=== PATIENT | female | born 1990 | race Caucasian/White ===

== ENCOUNTER 2023-08-07 09:50 | Outpatient (AMB) | payer OTHER, SELFPAY ==
[2023-08-07 09:56] VITALS: BP 118/78; PULSE 78; O2SAT 99; BMI 27.2
--- NOTE | 2023-08-07 09:56 | MHC.PC.OV ---
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 -Pt states she does not have a therapist or taking any meds. She notes thoughts of hurting herself do happen but would never actually do it. PMHx: Acne SurgHx: Csection FHx: Mom: DM, HTN, HLD, CAD, Lung CA, Breast CA. Dad: Melanoma SocHx: Nonsmoker, EtOH 1-2 x a month 1-2 drSanta No drugs HPI Comments History of Present Illness Details Documentation assistance for Raj James MD, was provided by Edmond Jasmine, Opener Verifier [employer] on 08/07/2023 10:44 AM ESTSanta I, Dr. James, have read, observed, and verified documentation. PFSH Medical History (Updated 08/07/23 @ 10:45 by Edmond Jasmine) delivery delivered Surgical History (Updated 08/07/23 @ 10:05 by Manda Lopez [facility]) No pertinent past surgical history Family History (Updated 08/07/23 @ 10:08 by Manda Lopez CMA) Mother High blood pressure Breast cancer Lung cancer High cholesterol Diabetes Cardiovascular disease Father Melanoma Social History (Updated 04/18/24 @ 10:12 by [facility] Household Members: Family Both parents involved: No Caregiver staying overnight: No Housing: House Are you a primary residential care officer to a significant other at home: No Do you presently have visiting nurse or other home services: No 75 years or older and lives alone: No Alcohol intake: current Comment: on occasion, socially Patient Tobacco Use Status: Never used Tobacco e-Cigarette/Vaping Use: Never Used service: No Current occupational status: unemployed Cognitive needs: No Hearing needs: No Vision needs: No Female Reproductive History Menstrual Date of last menstrual period: 07/25/23 Questionnaire PHQ-9 Over the last 2 weeks, how often have you been bothered by any of the following problems? 1. Little interest or pleasure in doing things: several days 2. Feeling down, depressed, or hopeless: several days 3. Trouble falling or staying asleep, or sleeping too much: several days 4. Feeling tired or having little energy: several days 5. Poor appetite or overeating: several days 6. Feeling bad about yourself - or that you are a failure or have let yourself or your family down: several days 7. Trouble concentrating on things, such as reading the newspaper or watching television: several days 8. Moving or speaking so slowly that other people could have noticed. Or the opposite - being so fidgety or restless that you have been moving around a lot more than usual: not at all 9. Thoughts that you would be better off or of hurting yourself in some way: several days Total score: 8 Depression Screening Interpretation: Positive Depression Screening Done: Yes 27645 - PHQ-9 Billing: Yes Source: Developed by Drs. Rusty Morales, Denise Valladares, Jose Hoover and colleagues, with an educational randy from [employer]. Thrive Questionnaire Date Thrive assessed: 08/07/23 I am a: Patient What is your living situation today?: I have a steady place to live Within the past 12 months, did the food you bought not last and you didn't have the money to get more?: Never true Within the past 12 months, did you worry whether your food would run out before you got money to buy more?: Never true Do you have trouble paying for medicines?: No Do you have trouble getting transportation to medical appointments?: No Do you have trouble paying your heating and electricity bill?: No Do you have trouble taking care of your child, family member or friend?: No Do you have trouble with day-to-day activities such as bathing, preparing meals, shopping, managing finances, etc.?: No Are you currently unemployed and looking for a job?: No Are you interested in more education?: No THRIVE Score: 0 AUDIT C Alcohol Use Questionnaire (AUDIT-C) 1. How often do you have a drink containing alcohol?: 2-4 times a month 2. How many drinks containing alcohol do you have on a typical day when you are drinking?: 1 or 2 3. How often do you have six or more drinks on one occasion?: Never Total Score: 2 FAZAL-7 AMB Questionnaire FAZAL-7 Date FAZAL - 7 assessed: 08/07/23 Feeling nervous, anxious, or on edge: 2 = More than half the days Not being able to stop or control worryin = More than half the days Worrying too much about different things: 2 = More than half the days Trouble relaxin = More than half the days Being so restless that it is hard to sit still: 1 = Several days Becoming easily annoyed or irritable: 3 = Nearly every day Feeling afraid as if something awful might happen: 2 = More than half the days Total FAZAL-7 score (0-4 normal; 5-9 mild; 10-14 moderate; 15-21 severe): 14 Source: Developed by Drs. Rusty Morales, Denise Valladares, Jose Hoover and colleagues, with an educational randy from [employer]. FAZAL-7 Assessment Billing FAZAL-7 Assessment Tool: FAZAL-7 Assessment 87146 Review of Systems Const Denies chills, Denies fatigue, Denies fever(s), Denies headache(s) and Denies weakness ENT Denies dizziness and Denies headache(s) Card Denies chest pain, Denies lightheadedness, Denies dyspnea and Denies other (Palpitations) Resp Denies cough, Denies dyspnea, Denies wheezing and Denies other ( shortness of breath) Musc Denies numbness and Denies tingling Neuro Denies dizziness, Denies headache(s), Denies numbness, Denies tingling, Denies paresthesias and Denies weakness Psych Reports anxiety and Reports depression Endo Denies fatigue Aller/Immun Denies wheezing Physical exam (Primary Care) Vital Signs: Last Vital Signs Pulse 78 08/07/23 09:56 BP 118/78 08/07/23 09:56 Pulse Ox 99 08/07/23 09:56 Oxygen Delivery Method Room Air 08/07/23 09:56 BMI result Body Mass Index 27.2 Tobacco/Smoking Status: Tobacco use Status Tobacco use date assessed 08/07/23 08/07/23 10:17 Patient Tobacco Use Status Never used Tobacco 08/07/23 10:17 e-Cigarette/Vaping Use Never Used 08/07/23 10:17 PHQ-9: PHQ-9 Score PHQ-9: Total score 8 08/07/23 10:17 Depression Screening Interpretation: Positive Thrive Assessment: Date of Thrive Assessment Date Thrive assessed 08/07/23 08/07/23 10:17 Const General: no acute distress and well developed Nutritional Appearance: well nourished Orientation/consciousness: patient oriented x3 HENMT Head: Yes normocephalic and Yes atraumatic Eyes General: appearance normal, both eyes and all related structures Pupils: Equal, round and reactive pupils present EOM: EOMs intact bilaterally Resp Effort & Inspection: normal respiratory effort Auscultation: clear to auscultation bilaterally Cardio Rate: regular rate Rhythm: regular rhythm Heart sounds: S1 normal heart sound present, S2 normal heart sound present, no gallops, no murmurs and no rubs Neuro General: patient oriented x3 and gait normal Cranial nerves: Yes Equal, round and reactive pupils present Psych Affect: normal affect Assessment and Plan Assessment & Plan (1) Anxiety with depression: Code(s): F41.8 - Other specified anxiety disorders Plan: Patient?denies?any?intention?to?harm?herself. We?had?a?long?discussion?about?1st?and?2nd?line?medications?for?anxiety?and?depression. Will?start?citalopram. Will?ask?the?nurse?navigator?to?help?connect?her?with?a?therapist Will?follow-up?in?a?month (2) Neoplasm of uncertain behavior of skin: Code(s): D48.5 - Neoplasm of uncertain behavior of skin Plan: Will?refer?to?dermatology?for?small?0.5?cm lesion?on?the?left?side?of?her?nose She?is?also?concerned?about?acne?and?can?discuss?this?with?them?as?well (3) Acne: Code(s): L70.9 - Acne, unspecified Plan: As?above,?referred?to?Dermatology (4) Screening for cervical cancer: Code(s): Z12.4 - Encounter for screening for malignant neoplasm of cervix Plan: Patient?would?like?a?referral?to?OBGYN?for?screening?for?cervical?cancer?and?java security engineer?care Referred (5) Laboratory exam ordered as part of routine general medical examination: Code(s): Z00.00 - Encounter for general adult medical examination without abnormal findings Plan: Check?lab Orders: Orders Comprehensive [place]. Panel Fast Today Z00.00 - Encounter for general adult medical examination without abnormal findings Lipid Panel Today Z00.00 - Encounter for general adult medical examination without abnormal findings UA and rflx microscopic Today Z00.00 - Encounter for general adult medical examination without abnormal findings Syphilis Screen Today Z11.3 - Encounter for screening for infections with a predominantly sexual mode of transmission Microalbumin, Random (w Creat) Today I10 - Essential (primary) hypertension TSH reflex Free T4 Today Z00.00 - Encounter for general adult medical examination without abnormal findings HIV Ab/Ag Today Z11.3 - Encounter for screening for infections with a predominantly sexual mode of transmission Hepatitis B,C Profile Today Z11.3 - Encounter for screening for infections with a predominantly sexual mode of transmission Referrals Dermatology Referral D48.5 - Neoplasm of uncertain behavior of skin, L70.9 - Acne, unspecified ENVIRONMENTAL ANALYST Referral Z12.4 - Encounter for screening for malignant neoplasm of cervix Nurse Navigator Referral F41.8 - Other specified anxiety disorders Medications: New citalopram 10 mg PO DAILY 30 days 30 tabs 1RF F41.8 - Other specified anxiety disorders Coding Level of Care Code New Pt Level 3 (67214) Diagnoses Anxiety with depression F41.8 Neoplasm of uncertain behavior of skin D48.5 Acne L70.9 Screening for cervical cancer Z12.4 Laboratory exam ordered as part of routine general medical examination Z00.00 Additional Codes FAZAL-7 Assessment Billing - FAZAL-7 Assessment Tool: FAZAL-7 Assessment 70684 ([id number])
== END 2023-08-07 11:37 | disposition home or self-care (01) ==
PROVIDERS: PCP Family Medicine; Visit Provider Family Medicine
DX: F41.8 Other specified anxiety disorders (principal); D48.5 Neoplasm of uncertain behavior of skin; L70.9 Acne, unspecified
CPT/HCPCS: 96127; 99203

== ENCOUNTER 2023-08-18 07:01 | Outpatient (REF) | payer OTHER, SELFPAY ==
[2023-08-18 12:15] LABS: Appearance Urine Clear; Color Urine Yellow; Glucose Urine UA Negative (Negative); Leukocyte Esterase Urine Trace (Negative); Nitrite Urine Negative (Negative); UMIC TRIGGER UA YES; Urine Blood Negative (Negative); Urine Ketones Negative (Negative); Urine Protein Negative (Neg-Trace)
[2023-08-18 12:23] LABS: Bacteria Urine Trace (None Seen); Hyaline Casts Urine 0-2 /LPF (0-2); RBC Urine 0-2 /HPF (0-2); WBC Urine 0-5 /HPF (0-5)
[2023-08-18 12:54] LABS: Creatinine Urine 101.23 mg/dL; Microalbumin Urine < 5.0 mg/L
[2023-08-18 13:06] LABS: Alanine Aminotransferase 12 U/L (0-31); Albumin Level 4.3 g/dL (3.5-5.0); Alkaline Phosphatase 36 U/L (39-117); Anion Gap 10 (12-20); Aspartate Amino Transferase 16 U/L (5-31); Bilirubin Total 0.7 mg/dL (0.0-1.0); Blood Urea Nitrogen 15 mg/dL (9-16); Calcium 9.1 mg/dL (8.4-10.2); Carbon Dioxide 26 mmol/L (22-29); Chloride 106 mmol/L (96-108); Cholesterol 154 mg/dL (<200); Estimated Glomerular Filt Rate > 60; Glucose Fasting 86 mg/dL (60-99); HDL Cholesterol 50 mg/dL (>40); LDL Cholesterol Calculated 95 mg/dL (<100); Potassium 4.1 mmol/L (3.3-5.1); Sodium 138 mmol/L (135-145); Triglycerides 45 mg/dL (<150)
[2023-08-18 13:27] LABS: TSH reflex Free T4 1.93 uIU/mL (0.32-4.0)
[2023-08-18 13:29] LABS: HBS Num1 10.36 mIU/mL (0-7.99); HBc Num1 0.16 S/CO (0.00-0.79); HIV AB/AG Nonreactive (Nonreactive); HIV Num 1 0.08 S/CO (0.00-0.99); Hepatitis B Core Antibody Nonreactive (Nonreactive)
[2023-08-18 13:30] LABS: Syphilis Screen Nonreactive (Nonreactive)
[2023-08-18 13:34] LABS: HBsAGNum1 0.43 S/CO (0.00-0.99); Hepatitis B Surface Antigen Negative (Negative); ~HepC Num1 0.18 S/CO (0.00-0.79); ~Hepatitis C Antibody Nonreactive (Nonreactive)
[2023-08-18 13:44] LABS: ~Hepatitis B Surface Antibody GRAYZONE (Nonreactive)
[2023-08-18 14:47] LABS: HBS Num2 11.23 mIU/mL (0-7.99); HBS Num3 11.22 mIU/mL (0-7.99)
== END 2023-08-18 07:02 | disposition home or self-care (01) ==
LOC: HO.WFDLDS 07:01
PROVIDERS: Visit Provider Family Medicine
DX: Z00.00 Encounter for general adult medical examination without abnormal findings (principal); Z11.3 Encounter for screening for infections with a predominantly sexual mode of transmission; Z11.4 Encounter for screening for human immunodeficiency virus [HIV]; I10 Essential (primary) hypertension
CPT/HCPCS: 36415; 80053; 80061; 81001; 81003; 82043; 82570; 84443; 86704; 86706; 86780; 86803; 87340; 87389

== ENCOUNTER → 2023-09-11 11:46 | Outpatient (AMB) | payer OTHER, SELFPAY ==
--- NOTE | 2023-09-11 11:51 | MHC.PC.OV ---
Vital Signs 09/11/23 11:54 Height 5 ft 4 in Weight 153 lb 2 oz BMI 26.3 BP 114/68 Blood Pressure Location Lt brachial Position Sitting Pulse 72 Pulse Source Pulse Oximeter Pulse Oximetry (%) 68 L Oxygen Delivery Method Room Air Intake Visit Reasons: Follow-up?anxiety?and?depression Intake Note: Patient is here to follow up on anxiety and depression today. Allergies No Known Allergies Allergy (Verified 09/11/23 11:55) Tobacco use date assessed: 09/11/23 Dental Screening Dental Screen Date: 08/07/23 HPI Follow-up?anxiety?and?depression HPI Details 32 y/o female presents to f/u anxiety/depression. Pt notes citalopram 10mg seems to help. She continues to f/u with her therapist. PHQ-9 8, FAZAL-7 7 today. Labs were drawn 08/18/23. Reviewed labs with pt. Labs were fine. HPI Comments History of Present Illness Details Documentation assistance for Raj James MD, was provided by Edmond Jasmine, [employer] on 09/11/2023 12:09 PM EST. I, Dr. James, have read, observed, and verified documentation. [facility] Medical History delivery delivered Surgical History No pertinent past surgical history Family History (Updated 09/11/23 @ 12:00 by Manda Lopez CMA) Mother High blood pressure Breast cancer Lung cancer High cholesterol Diabetes Cardiovascular disease Substance abuse in family Father Melanoma Maternal Aunt Substance abuse in family Social History Household Members: Family Both parents involved: No Caregiver staying overnight: No Housing: House Are you a primary child care teacher to a significant other at home: No Do you presently have visiting nurse or other home services: No 75 years or older and lives alone: No Alcohol intake: current Comment: on occasion, socially Patient Tobacco Use Status: Never used Tobacco e-Cigarette/Vaping Use: Never Used service: No Current occupational status: unemployed Cognitive needs: No Hearing needs: No Vision needs: No Questionnaire PHQ-9 Over the last 2 weeks, how often have you been bothered by any of the following problems? 1. Little interest or pleasure in doing things: several days 2. Feeling down, depressed, or hopeless: several days 3. Trouble falling or staying asleep, or sleeping too much: several days 4. Feeling tired or having little energy: several days 5. Poor appetite or overeating: several days 6. Feeling bad about yourself - or that you are a failure or have let yourself or your family down: several days 7. Trouble concentrating on things, such as reading the newspaper or watching television: several days 8. Moving or speaking so slowly that other people could have noticed. Or the opposite - being so fidgety or restless that you have been moving around a lot more than usual: several days 9. Thoughts that you would be better off or of hurting yourself in some way: not at all Total score: 8 Depression Screening Interpretation: Positive Depression Screening Done: Yes Source: Developed by Drs. Rusty Morales, Denise Valladares, Jose Hoover and colleagues, with an educational randy from [employer]. Thrive Questionnaire Date Thrive assessed: 08/07/23 FAZAL-7 AMB Questionnaire FAZAL-7 Date FAZAL - 7 assessed: 09/11/23 Feeling nervous, anxious, or on edge: 1 = Several days Not being able to stop or control worryin = Several days Worrying too much about different things: 1 = Several days Trouble relaxin = Several days Being so restless that it is hard to sit still: 1 = Several days Becoming easily annoyed or irritable: 1 = Several days Feeling afraid as if something awful might happen: 1 = Several days Total FAZAL-7 score (0-4 normal; 5-9 mild; 10-14 moderate; 15-21 severe): 7 Source: Developed by Drs. Rusty Morales, Denise Valladares, Jose Hoover and colleagues, with an educational randy from [employer]. Review of Systems Const Denies chills, Denies fatigue, Denies fever(s), Denies headache(s) and Denies weakness ENT Denies dizziness and Denies headache(s) Card Denies dyspnea Resp Denies cough, Denies dyspnea, Denies wheezing and Denies other (shortness of breath) Musc Denies numbness and Denies tingling Neuro Denies dizziness, Denies headache(s), Denies numbness, Denies tingling and Denies weakness Psych Reports anxiety and Reports depression Endo Denies fatigue Aller/Immun Denies wheezing Physical exam (Primary Care) Vital Signs: Last Vital Signs Pulse 72 09/11/23 11:54 BP 114/68 09/11/23 11:54 Pulse Ox 68 L 09/11/23 11:54 Oxygen Delivery Method Room Air 09/11/23 11:54 BMI result Body Mass Index 26.3 Tobacco/Smoking Status: Tobacco use Status Tobacco use date assessed 09/11/23 09/11/23 12:06 Patient Tobacco Use Status Never used Tobacco 09/11/23 11:52 e-Cigarette/Vaping Use Never Used 09/11/23 11:52 PHQ-9: PHQ-9 Score PHQ-9: Total score 8 09/11/23 12:08 Depression Screening Interpretation: Positive Thrive Assessment: Date of Thrive Assessment Date Thrive assessed 08/07/23 09/11/23 11:52 Const General: well developed; No acute distress Nutritional Appearance: well nourished Orientation/consciousness: patient oriented x3 [facility] Head: Yes normocephalic and Yes atraumatic Eyes General: appearance normal, both eyes and all related structures Pupils: Equal, round and reactive pupils present EOM: EOMs intact bilaterally Resp Effort & Inspection: normal respiratory effort Auscultation: clear to auscultation bilaterally Cardio Rate: regular rate Rhythm: regular rhythm Heart sounds: S1 normal heart sound present, S2 normal heart sound present, no gallops, no murmurs and no rubs Neuro General: patient oriented x3 and gait normal Cranial nerves: Yes Equal, round and reactive pupils present Psych Affect: normal affect Assessment and Plan Assessment & Plan (1) Anxiety with depression: Code(s): F41.8 - Other specified anxiety disorders Plan: Patient?says?citalopram?is?working?well. Will?increase?dose?to?20?mg?daily.??If?she?has?any?problems?with?this,?she?can?break?in?half?to?continue?10?mg?daily?and?let?me?know She?now?has?a?therapist She?is?considering?getting?a?psychiatrist?as?well Medications: Changed From citalopram 10 mg PO DAILY 30 days 30 tabs 1RF To citalopram 20 mg PO DAILY 30 tabs 1RF 30 days Coding Level of Care Code Est Pt Level 3 (54306) Diagnoses Anxiety with depression F41.8
[2023-09-11 11:54] VITALS: BP 114/68; PULSE 72; O2SAT 68; BMI 26.3
== END ==
PROVIDERS: PCP Family Medicine; Visit Provider Family Medicine
DX: F41.8 Other specified anxiety disorders (principal)
CPT/HCPCS: 99213

== ENCOUNTER 2023-09-23 07:32 | Outpatient (AMB) | payer OTHER, SELFPAY ==
--- NOTE | 2023-09-23 07:34 | MHC.OFFVIS ---
Vital Signs 09/23/23 07:35 Height 5 ft 4 in Weight 150 lb BMI 25.7 BP 108/60 Intake Visit Reasons: New patient Annual Intake Note: no concerns Well Site Drilling Engineer Required: No Information Interpreted: non-clinical & clinical Broadcast Maintenance Engineer: Broadcast Maintenance Engineer Present (Anju SARAH) Accompanied by: Self / Same As Patient Allergies No Known Allergies Allergy (Verified 09/23/23 07:39) Is last menstrual period known: Yes Last menstrual period: 09/17/23 HPI Comments Details: Presenting for annual exam. No complaints. The patient is interested in discussing different options of , Last Pap was negative in 2019 [facility] Medical History delivery delivered Surgical History Hx of section Family History Mother High blood pressure Breast cancer Lung cancer High cholesterol Diabetes Cardiovascular disease Substance abuse in family Father Melanoma Maternal Aunt Substance abuse in family Social History Household Members: Spouse, Family and Children Both parents involved: No Caregiver staying overnight: No Housing: House Are you a primary childcare center director to a significant other at home: No Do you presently have visiting nurse or other home services: No 75 years or older and lives alone: No Alcohol intake: current Comment: on occasion, socially Patient Tobacco Use Status: Never used Tobacco Tobacco use type: Cigarette e-Cigarette/Vaping Use: Never Used Substance Use Type: Marijuana service: No Current occupational status: unemployed Sexual orientation: Straight/Heterosexual Gender identity: Female Cognitive needs: No Hearing needs: No Vision needs: No Female Reproductive History Menstrual Date of last menstrual period: 09/17/23 Total pregnancies: 2 Full term: 2 Number of Living Children: 2 Review of Systems Const All systems reviewed & are unremarkable except as noted in HPI and below Card Reports as per HPI Resp Reports as per HPI GI Reports as per HPI and Reports no additional complaints Reports as per HPI Physical Exam Vital Signs: BMI result Body Mass Index 26.1 Const General: cooperative, healthy appearing and comfortable Chest Chest palpation & inspection: normal inspection of the chest and normal palpation of entire chest wall Breast/axilla inspection: normal inspection of the breasts and normal inspection of the axillae Breast/axilla palpation: normal palpation of the breasts, normal palpation of the axillae and no axillary lymphadenopathy Resp Effort & Inspection: normal respiratory effort Auscultation: clear to auscultation bilaterally Percussion: percussion normal Cardio Palpation: normal PMI Rate: regular rate Rhythm: regular rhythm Heart sounds: no murmurs and no rubs Peripheral pulses: Peripheral pulses 2+ throughout GI Inspection: Yes normal to inspection Palpation (GI): Soft to palpation, nontender, no guarding, not rigid and No hepatosplenomegaly present Percussion: Yes normal to percussion Auscultation: normal bowel sounds Rectal Exam - Female: deferred General: Yes bladder normal to palpation External Female Exam: No lesion Speculum Exam - Vagina: normal appearance of the vagina, normal palpation, normal vaginal discharge and not erythematous Speculum Exam - Cervix: normal appearance of the cervix and normal palpation Bimanual exam- vagina & uterus: normal bimanual exam, normal palpation, uterine size normal, bladder normal to palpation, consistency normal and normal palpation Bimanual Exam- Adnexa, other: normal adnexae, no masses and no tenderness Assessment & Plan Assessment & Plan (1) Well woman exam: Code(s): Z01.419 - Encounter for gynecological examination (general) (routine) without abnormal findings Category: Medical Plan: Cotesting done. Counseled the patient about the recommended dietary allowance of 1000 mg of Calcium & 600 IU of vitamin D. The patient was instructed to perform monthly self-breast exams and to schedule an annual exam in a year; All questions answered and the patient verbalized understanding. Instructed the patient to schedule annual exam in a year (2) Family planning: Code(s): Z30.09 - Encounter for other general counseling and advice on contraception Category: Social Hx Plan: Discussed with the patient the different options of control including control pills/Nuvaring, DMPA, different types of IUD ?s, sterilization. All the pros, cons, risks and benefits of each were discussed with the patient. The patient decided to go ahead with an copper IUD, so a more detailed discussion was carried on including types (Progesterone, Copper), mechanism of action, risks (infection, uterine perforation, failure with ectopic , septic AB, dysmenorrhea with Paraguard, others) benefits (efficient contraceptive method, hypo menorrhea with levo norgestrel IUD, others) GC/CG were taken and the patient was asked to call day one of next cycle for IUD insertion. (3) Family history of breast cancer: Code(s): Z80.3 - Family history of malignant neoplasm of breast Category: Medical Plan: Given the patient's family history of breast cancer with her mom and maternal grandmother, will refer to cancer genetic counseling at [facility]. Instructed the patient to call our office back in case a referral appointment is not scheduled, missed or canceled so that we will assist on rescheduling another appointment, the patient verbalized understanding agreed with the plan. Orders: Referrals Genetics Referral Z80.3 - Family history of malignant neoplasm of breast Coding Level of Care Code New Pt Prev Care 18-39yr([id number] Diagnoses Well woman exam Z01.419 Family planning Z30.09 Family history of breast cancer Z80.3
[2023-09-23 07:35] VITALS: BP 108/60; BMI 25.7
== END 2023-09-23 08:09 | disposition home or self-care (01) ==
PROVIDERS: PCP Family Medicine; Visit Provider Obstetrics & Gynecology
DX: Z01.419 Encounter for gynecological examination (general) (routine) without abnormal findings (principal); Z30.09 Encounter for other general counseling and advice on contraception; Z80.3 Family history of malignant neoplasm of breast
CPT/HCPCS: 99385

== ENCOUNTER 2023-09-23 07:32 | Outpatient (REF) | payer OTHER, SELFPAY ==
[2023-09-23 16:54] LABS: CT PCR NOT DETECTED (Not Detect.); NG PCR NOT DETECTED (Not Detect.)
[2023-10-03 00:39] LABS: HPV mRNA E6/E7 rflx Not Detected (Not Detected)
== END 2023-09-23 07:33 | disposition home or self-care (01) ==
LOC: HO.LNP 07:32
PROVIDERS: PCP Family Medicine; Visit Provider Obstetrics & Gynecology
DX: Z01.419 Encounter for gynecological examination (general) (routine) without abnormal findings (principal); Z80.3 Family history of malignant neoplasm of breast
CPT/HCPCS: 0353U; 87624; 88142; 99385

== ENCOUNTER 2023-10-15 11:18 | Outpatient (AMB) | payer OTHER, SELFPAY ==
[2023-10-15 11:24] VITALS: BP 108/60; BMI 25.7
--- NOTE | 2023-10-15 11:24 | A.OFFVIS_ITS ---
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 Required: No Information Interpreted: non-clinical & clinical Customer Project Manager: Customer Project Manager Present (Anju Aguilar KEARA) Accompanied by: Self / Same As Patient Allergies No Known Allergies Allergy (Verified 10/15/23 11:33) Is last menstrual period known: Yes Last menstrual period: 10/14/23 HPI Comments Details: Presenting for ParaGard IUD insertion [facility] Medical History delivery delivered Surgical History Hx of section Family History Mother High blood pressure Breast cancer Lung cancer High cholesterol Diabetes Cardiovascular disease Substance abuse in family Father Melanoma Maternal Aunt Substance abuse in family Social History Household Members: Spouse, Family and Children Both parents involved: No Caregiver staying overnight: No Housing: House Are you a primary tree care foreman to a significant other at home: No Do you presently have visiting nurse or other home services: No 75 years or older and lives alone: No Alcohol intake: current Comment: on occasion, socially Patient Tobacco Use Status: Never used Tobacco Tobacco use type: Cigarette e-Cigarette/Vaping Use: Never Used Substance Use Type: Marijuana service: No Current occupational status: unemployed Sexual orientation: Straight/Heterosexual Gender identity: Female Cognitive needs: No Hearing needs: No Vision needs: No Female Reproductive History Menstrual Date of last menstrual period: 10/14/23 control method: copper IUCD Physical Exam Vital Signs: BMI result Body Mass Index 25.7 Office Procedures IUD Insert/Removal Details Details: The patient is presenting for Paraguard IUD insertion. Her last menstrual period was within the last 5 days, Urine test was done in the office and was negative; All the contraindications were excluded. The following possible complications were discussed with the patient: Intrauterine , Ectopic , Sepsis, Pelvic Infection, Irregular Bleeding, Perforation, Expulsion. The possible adverse effects were discussed with the patient including but not limited to: increased uterine bleeding, dysmenorrhea , others Alternative options were discussed with the patient including but not limited: control pills, patch, NuvaRing, Depo-medroxyprogesterone acetate, Nexplanon, copper IUD, sterilization, vasectomy, others The procedure was explained in detail to patient , at the end patient signed the informed consent obtained. Urine test was done in the office and was negative A no touch technique was used throughout the procedure. A speculum was placed into vagina and cervix was cleaned with betadine). A tenaculum was placed. A plastic sound was advanced through the external and internal os until it reached the fundus of the uterus, the depth was 7 cm. The sound was then withdrawn. The ParaGard IUD was loaded in a sterile manner and advanced into position. The string was visualized and cut to 3 cm. Tenaculum site hemostatic. All instruments removed from vagina. Patient tolerated the procedure well. NO complications were noted. Patient was instructed to call for fever over 100.4, significant pain unrelieved by Motrin, IUD expulsion, heavy bleeding, or abnormal discharge. In addition, the following clinical considerations were discussed with the patient to call for removal: Unexplained fever , or suspected , Pelvic pain or pain during sex ,HIV positive seroconversion in herself or her partner , Possible exposure to sexually transmitted infections Unusual vaginal discharge or genital sores , severe vaginal bleeding or bleeding that lasts a long time, or if she misses a menstrual period, Inability to feel IUD s threads Counseled the patient that the IUD does not protect against STI's, recommended use of condoms for the first 7 days post insertion and explained to the patient that condoms are recommended for patients at risk for sexually transmitted infections. Follow up appointment made for 6 weeks following insertion. This note was generated with a voice recognition program. Some errors may have been overlooked during the review of this note. Sometimes these errors may affect the content or meaning of a given sentence. 25966-AZI Insertion Procedure code (CPT) selection complete Office Meds ParaGard T 380A 380 square mm intrauterine device Performing Provider: Jose Leyva MD Performing Location: [facility] [place] [facility] Documented (not given) by: Jose Leyva MD on 10/15/23 11:45 Dose Route Admin Location Dispensed Lot Number Expiration Date [facility] Calciner Operator Helper 1 device intrauterine ea Results AMB Test Urine AMB Test Urine Negative Last Edit by Anju Aguilar CMA on 11:35 Assessment & Plan Assessment & Plan (1) Encounter for IUD insertion: Code(s): Z30.430 - Encounter for insertion of intrauterine contraceptive device Category: Medical Plan: ParaGard IUD inserted Orders: Orders AMB HCG Urine Test Today Z32.02 - Encounter for test, result negative AMB IUD Insertion/Removal - Patient Supply Today Z30.430 - Encounter for insertion of intrauterine contraceptive device Medications: New ParaGard T 380A (copper) 1 device intrauterine ONCE 1 ea 0RF IUD insertion NS Z30.430 - Encounter for insertion of intrauterine contraceptive device Coding Level of Care Code Procedure Only Diagnoses Encounter for IUD insertion Z30.430 CPT Codes Details - CPT: 71770-TSS Insertion ([id number])
== END 2023-10-15 11:56 | disposition home or self-care (01) ==
PROVIDERS: PCP Family Medicine; Visit Provider Obstetrics & Gynecology
DX: Z30.430 Encounter for insertion of intrauterine contraceptive device (principal); Z32.02 Encounter for pregnancy test, result negative
CPT/HCPCS: 58300

== ENCOUNTER → 2023-10-15 11:18 | Outpatient (BNVA) | payer OTHER, SELFPAY | PROVIDERS: PCP Family Medicine; Visit Provider Obstetrics & Gynecology | DX: Z30.430 Encounter for insertion of intrauterine contraceptive device (principal) | CPT/HCPCS: 58300; 81025; J7300 ==

== ENCOUNTER 2023-11-26 11:04 | Outpatient (AMB) | payer OTHER, SELFPAY ==
--- NOTE | 2023-11-26 11:09 | MHC.OFFVIS ---
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 The patient has no complaints periods are a little longer, not painful, and flow is mildly heavier. [facility] Medical History delivery delivered Surgical History Hx of section Family History Mother High blood pressure Breast cancer Lung cancer High cholesterol Diabetes Cardiovascular disease Substance abuse in family Father Melanoma Maternal Aunt Substance abuse in family Social History Household Members: Spouse, Family and Children Both parents involved: No Caregiver staying overnight: No Housing: House Are you a primary progressive care manager to a significant other at home: No Do you presently have visiting nurse or other home services: No 75 years or older and lives alone: No Alcohol intake: current Comment: on occasion, socially Patient Tobacco Use Status: Never used Tobacco Tobacco use type: Cigarette e-Cigarette/Vaping Use: Never Used Substance Use Type: Marijuana service: No Current occupational status: unemployed Sexual orientation: Straight/Heterosexual Gender identity: Female Cognitive needs: No Hearing needs: No Vision needs: No Female Reproductive History Menstrual Date of last menstrual period: 11/03/23 Review of Systems Const All systems reviewed & are unremarkable except as noted in HPI and below Physical Exam General: Yes no CVA tenderness External Female Exam: normal external appearance and normal appearance of the urethra Speculum Exam - Vagina: normal appearance of the vagina, normal palpation, no lesions and no masses Speculum Exam - Cervix: normal appearance of the cervix, normal palpation, no lesions, no masses, nontender and Other cervical findings present (IUD thread seen in place) Bimanual exam- vagina & uterus: normal bimanual exam, normal palpation, uterine size normal, normal palpation, uterine shape normal, No Cervical tenderness present and non-tender Bimanual Exam- Adnexa, other: normal adnexae Back/Spine/Pelvis Back: no CVA tenderness Assessment & Plan Assessment & Plan (1) IUD check up: Code(s): Z30.431 - Encounter for routine checking of intrauterine contraceptive device Category: Medical Plan: UPT done in the office was negative. Discussed with the patient the finding on physical exam, IUD string in place, the patient was reassured. Instructions given to patient to call in case of temperature above 100.4, severe cramping/pelvic pain, abnormal discharge or abnormal uterine bleeding or if she misses her menstrual cycle. Otherwise follow-up at her annual exam appointment. All questions answered, the patient verbalized understanding. Coding Level of Care Code Est Pt Level 3 (05366) Diagnoses IUD check up Z30.431
== END 2023-11-26 13:55 | disposition home or self-care (01) ==
LOC: HO.HWS 11:04
PROVIDERS: PCP Family Medicine; Visit Provider Obstetrics & Gynecology
DX: Z30.431 Encounter for routine checking of intrauterine contraceptive device (principal)
CPT/HCPCS: 99213

== ENCOUNTER → 2023-11-26 11:04 | Outpatient (BNVA) | payer OTHER, SELFPAY | PROVIDERS: PCP Family Medicine; Visit Provider Obstetrics & Gynecology | DX: Z30.431 Encounter for routine checking of intrauterine contraceptive device (principal) | CPT/HCPCS: 99212 ==

== ENCOUNTER 2023-12-11 15:52 | Outpatient (AMB) | payer OTHER, SELFPAY ==
--- NOTE | 2023-12-11 16:02 | MHC.PC.OV ---
Vital Signs 12/11/23 16:05 Height 5 ft 5 in Weight 161 lb 2 oz BMI 26.8 BP 90/60 Blood Pressure Location Lt brachial Position Sitting Respiration 12 Pulse 67 Pulse Source Pulse Oximeter Temp 97.7 F Temp Source Tympanic Pulse Oximetry (%) 98 Oxygen Delivery Method Room Air Intake Visit Reasons: CPE Intake Note: CPE Is last menstrual period known: Yes Last menstrual period: 12/03/23 Allergies No Known Allergies Allergy (Verified 12/11/23 16:02) Medication List - Last Reconciled 12/11/23 by Raj James MD citalopram 20 mg PO DAILY 90 days copper (ParaGard T 380A) intrauterine Tobacco use date assessed: 12/11/23 Dental Screening Dental Screen Date: 12/11/23 Did you have a dental visit in the last 12 months?: No Did you have a dental problem in the last 6 months where you did not have access to dental care?: No Was dental information given to patient?: Patient has dentist HPI CPE HPI Details 33 y/o female presents for a CPE with f/u labs and health maintenance. Labs drawn 08/18/23. Reviewed labs with pt. Triglycerides 45. TC 154. LDL 95. HDL 50. She is on citalopram 20mg for mood. Pap smear was in September - normal. PHQ-9 10, FAZAL-7 6 today. Eats a healthy diet with a lot of vegetables. Gets exercise. Has complaints of sun damaged skin. Strong FHx of breast cancer, first degree relative in her 50s. She notes genetic counseling recently. Results unavailable yet. HPI Comments History of Present Illness Details Documentation assistance for Raj James MD, was provided by Edmond Jasmine,? Municipal [employer] Trader on 12/11/2023 at 4:29 PM EST. I, Dr. James, have read, observed, and verified documentation. PFSH Medical History delivery delivered Surgical History Hx of section Family History Mother High blood pressure Breast cancer Lung cancer High cholesterol Diabetes Cardiovascular disease Substance abuse in family Father Melanoma Maternal Aunt Substance abuse in family Social History (Updated 12/11/23 @ 16:03 by Reji Hernández) Household Members: Spouse, Family and Children Both parents involved: No Caregiver staying overnight: No Housing: House Are you a primary healthcare advisory services manager to a significant other at home: No Do you presently have visiting nurse or other home services: No 75 years or older and lives alone: No Alcohol intake: current Comment: on occasion, socially Patient Tobacco Use Status: Never used Tobacco Tobacco use type: Cigarette e-Cigarette/Vaping Use: Never Used Use of substances other than those prescribed or required for medical reasons: Yes Substance Use Type: Marijuana service: No Current occupational status: unemployed Sexual orientation: Straight/Heterosexual Gender identity: Female Cognitive needs: No Hearing needs: No Vision needs: No Female Reproductive History Menstrual Date of last menstrual period: 12/03/23 Questionnaire PHQ-9 Over the last 2 weeks, how often have you been bothered by any of the following problems? 1. Little interest or pleasure in doing things: not at all 2. Feeling down, depressed, or hopeless: several days 3. Trouble falling or staying asleep, or sleeping too much: several days 4. Feeling tired or having little energy: more than half the days 5. Poor appetite or overeating: nearly every day 6. Feeling bad about yourself - or that you are a failure or have let yourself or your family down: several days 7. Trouble concentrating on things, such as reading the newspaper or watching television: more than half the days 8. Moving or speaking so slowly that other people could have noticed. Or the opposite - being so fidgety or restless that you have been moving around a lot more than usual: not at all 9. Thoughts that you would be better off or of hurting yourself in some way: not at all Total score: 10 Depression Screening Interpretation: Positive Depression Screening Done: Yes 65372 - PHQ-9 Billing: Yes Source: Developed by Drs. Rusty Morales, Denise Valladares, Jose Hoover and colleagues, with an educational randy from [employer]. Thrive Questionnaire Date Thrive assessed: 12/11/23 I am a: Patient What is your living situation today?: I have a steady place to live Within the past 12 months, did the food you bought not last and you didn't have the money to get more?: Never true Within the past 12 months, did you worry whether your food would run out before you got money to buy more?: Never true Do you have trouble paying for medicines?: No Do you have trouble getting transportation to medical appointments?: No Do you have trouble paying your heating and electricity bill?: No Do you have trouble taking care of your child, family member or friend?: No Do you have trouble with day-to-day activities such as bathing, preparing meals, shopping, managing finances, etc.?: No Are you currently unemployed and looking for a job?: No Are you interested in more education?: No Please select the resources that you would like help with: None Currently or been in a relationship where the following occur: No concerns reported THRIVE Score: 0 AUDIT C Alcohol Use Questionnaire (AUDIT-C) 1. How often do you have a drink containing alcohol?: Monthly or less 2. How many drinks containing alcohol do you have on a typical day when you are drinking?: 3 or 4 3. How often do you have six or more drinks on one occasion?: Never Total Score: 2 Score Reviewed/Action Taken: Yes FAZAL-7 AMB Questionnaire FAZAL-7 Date FAZAL - 7 assessed: 12/11/23 Feeling nervous, anxious, or on edge: 1 = Several days Not being able to stop or control worryin = Several days Worrying too much about different things: 1 = Several days Trouble relaxin = Several days Being so restless that it is hard to sit still: 0 = Not at all Becoming easily annoyed or irritable: 1 = Several days Feeling afraid as if something awful might happen: 1 = Several days Total FAZAL-7 score (0-4 normal; 5-9 mild; 10-14 moderate; 15-21 severe): 6 Source: Developed by Drs. Rusty Morales, Denise Valladares, Jose Hoover and colleagues, with an educational randy from [employer]. FAZAL-7 Assessment Billing FAZAL-7 Assessment Tool: FAZAL-7 Assessment 81289 Review of Systems Const Denies chills, Denies fatigue, Denies fever(s), Denies headache(s) and Denies weakness Eyes Denies change in vision ENT Denies dizziness, Denies headache(s), Denies hearing loss, Denies nasal congestion, Denies sinus pain, Denies sinus pressure and Denies sore throat Card Denies chest pain, Denies lightheadedness, Denies dyspnea and Denies other (palpitations) Resp Denies cough, Denies dyspnea and Denies wheezing GI Denies abdominal pain, Denies melena, Denies hematochezia, Denies change in bowel habits, Denies dyspepsia and Denies nausea Denies hematuria and Denies dysuria Musc Denies abnormal gait, Denies myalgias, Denies arthralgias, Denies numbness and Denies tingling Skin/Breast Denies rash, Denies unusual bruising and Denies wounds Neuro Denies abnormal gait, Denies dizziness, Denies headache(s), Denies memory loss, Denies numbness, Denies Sensory deficit (Neuro), Denies tingling and Denies weakness Psych Reports anxiety, Reports depression and Denies memory loss Endo Denies cold intolerance, Denies fatigue, Denies heat intolerance, Denies polydipsia and Denies polyuria Familia/Lymph Denies easy bleeding and Denies easy bruising Aller/Immun Denies wheezing Physical exam (Primary Care) Vital Signs: Last Vital Signs Temp 97.7 F 12/11/23 16:05 Pulse 67 12/11/23 16:05 Resp 12 12/11/23 16:05 BP 90/60 12/11/23 16:05 Pulse Ox 98 12/11/23 16:05 Oxygen Delivery Method Room Air 12/11/23 16:05 BMI result Body Mass Index 26.8 Tobacco/Smoking Status: Tobacco use Status Tobacco use date assessed 12/11/23 12/11/23 16:08 Patient Tobacco Use Status Never used Tobacco 12/11/23 16:08 Tobacco use type Cigarette 12/11/23 16:08 e-Cigarette/Vaping Use Never Used 12/11/23 16:08 PHQ-9: PHQ-9 Score PHQ-9: Total score 10 12/11/23 16:25 Depression Screening Interpretation: Positive Thrive Assessment: Date of Thrive Assessment Date Thrive assessed 12/11/23 12/11/23 16:08 Currently or been in a relationship where the following occur: No concerns reported Const General: no acute distress, well developed, alert and awake Nutritional Appearance: well nourished Orientation/consciousness: patient oriented x3 HENMT Head: Yes normocephalic and Yes atraumatic Ears: hearing grossly normal bilaterally and TM's normal bilaterally General nose exam: Normal external nose present and Normal nares present Mouth: Normal oral and palatal mucosa present and moist mucous membranes Teeth and gingiva: dentition normal Throat: Yes posterior oropharynx normal Eyes General: appearance normal, both eyes and all related structures Pupils: Equal, round and reactive pupils present and Pupil accommodation reflex normal EOM: EOMs intact bilaterally Neck Neck: Yes normal visual inspection, Yes no lymphadenopathy and Yes trachea midline Thyroid: Thyroid normal Carotids: no bruits Lymphatic: no lymphadenopathy noted Chest Chest palpation & inspection: normal inspection of the chest Resp Effort & Inspection: normal respiratory effort Auscultation: clear to auscultation bilaterally Cardio Rate: regular rate Rhythm: regular rhythm Heart sounds: S1 normal heart sound present, S2 normal heart sound present, no gallops, no murmurs and no rubs Bruits: no abdominal aortic bruits and no carotid bruits GI Palpation (GI): No Abdominal aortic bruit present, Soft to palpation, nontender, No hepatosplenomegaly present and No Rebound tenderness present Auscultation: normal bowel sounds General: Yes no CVA tenderness Back/Spine/Pelvis Back: no CVA tenderness Cervical Spine: cervical ROM normal and No Cervical spine tenderness Thoracic/Lumbar Spine: thoraco-lumbar ROM normal, No pain with thoraco-lumbar ROM, No thoracic spinal tenderness and No lumbar spinal tenderness Skin Lesions: no lesions Rashes: no rashes Trauma: no lacerations or abrasions Wounds: no wounds Nails: normal Neuro General: patient oriented x3 Cranial nerves: Yes Equal, round and reactive pupils present Cognition (Neuro): normal cognition Gait exam (Neuro): Normal gait present Motor exam (neuro): 5/5 motor strength present throughout Sensory Exam: No Sensory deficit (Neuro) Deep tendon reflexes (DTR's): Right patellar reflex intensity grade: 2+ and Left patellar reflex intensity grade: 2+ Extrem General: Yes normal to inspection and No edema Psych Appearance: grossly normal Affect: normal affect Attitude: cooperative Thought process: Normal thought process present Assessment and Plan Assessment & Plan (1) Adult general medical exam: Code(s): Z00.00 - Encounter for general adult medical examination without abnormal findings Plan: 33-year-old?female?presents?for?complete?physical?exam Exam?is?within?normal?limits?except?as?described?below Encouraged?healthy?diet?with?active?lifestyle?and?plenty?of?exercise (2) Anxiety with depression: Code(s): F41.8 - Other specified anxiety disorders Plan: Currently?stable?on?citalopram?20?mg?daily Will?continue?on?this?dose She?will?let?me?know?if?she?is?having?any?difficulties?and?needs?a?dose?adjustment. (3) Sun-damaged skin: Code(s): L57.8 - Other skin changes due to chronic exposure to nonionizing radiation Plan: She?already?has?an?appointment?with?Dermatology (4) Screening for cervical cancer: Code(s): Z12.4 - Encounter for screening for malignant neoplasm of cervix Plan: Recent?Pap?smear?was?negative?for?intraepithelial?lesions?or?HPV Up-to-date Continue?screening?as?recommended?by?distribution manager (5) Family history of breast cancer: Code(s): Z80.3 - Family history of malignant neoplasm of breast Plan: Strong?family?history?of?breast?cancer?in?a?first-degree?relative?in?her?50s Patient?had?genetics?counseling?recently?and?results?should?be?available?in?about?3?weeks. I?asked?her?to?have?results?forwarded?to?me?as?well For?now,?recommending?starting?annual?screening?at?age?41?but?this?may?be?adjusted?based?on?genetics?recommendations. Coding Level of Care Code Est Pt Level 3 (77773) Est Pt Prev Care 18-39y(45022) Diagnoses Adult general medical exam Z00.00 Anxiety with depression F41.8 Sun-damaged skin L57.8 Screening for cervical cancer Z12.4 Family history of breast cancer Z80.3 Additional Codes FAZAL-7 Assessment Billing - FAZAL-7 Assessment Tool: FAZAL-7 Assessment [id number] ([id number])
[2023-12-11 16:05] VITALS: BP 90/60; PULSE 67; RESP 12; TEMP 36.5; O2SAT 98; BMI 26.8
== END 2023-12-11 16:38 | disposition home or self-care (01) ==
LOC: HO.HMGFM 15:53
PROVIDERS: PCP Family Medicine; Visit Provider Family Medicine
DX: Z00.00 Encounter for general adult medical examination without abnormal findings (principal); F41.8 Other specified anxiety disorders; L57.8 Other skin changes due to chronic exposure to nonionizing radiation; Z80.3 Family history of malignant neoplasm of breast
CPT/HCPCS: 99395

== ENCOUNTER 2024-01-30 08:52 | Outpatient (REF) | payer OTHER, SELFPAY ==
[2024-01-30 14:22] LABS: Appearance Urine Clear; Color Urine Yellow; Glucose Urine UA Negative (Negative); Leukocyte Esterase Urine Negative (Negative); Nitrite Urine Negative (Negative); PH 6.5 (5.0-9.0); Specific Gravity - Urine 1.015 (1.005-1.025); Urine Blood Negative (Negative); Urine Ketones Negative (Negative); Urine Protein Negative (Neg-Trace)
== END 2024-01-30 08:53 | disposition home or self-care (01) ==
LOC: HO.LAB 08:52
PROVIDERS: Nurse Practitioner Family; PCP Family Medicine
DX: R82.90 Unspecified abnormal findings in urine (principal)
CPT/HCPCS: 81003; 99212

== ENCOUNTER 2024-01-30 08:52 | Outpatient (AMB) | payer OTHER, SELFPAY ==
--- NOTE | 2024-01-30 09:39 | MHC.OFFWIV ---
Intake Vital Signs 01/30/24 09:43 Height 5 ft 5 in Weight 166 lb 6 oz BMI 27.7 BP 105/74 Blood Pressure Location Rt brachial Position Sitting Respiration 16 Pulse 74 Pulse Source Pulse Oximeter Temp 98.5 F Temp Source Oral Pulse Oximetry (%) 99 Oxygen Delivery Method Room Air Intake Visit Reasons: est/uti Intake Note: patient here c/o UTI Patient Tobacco Use Status: Never used Tobacco Log Marker Required: No Is last menstrual period known: Yes Last menstrual period: 01/17/24 Post menopausal: No Patient : No Allergies No Known Allergies Allergy (Verified 01/30/24 09:43) Do you need a note to return to daycare/school/sports/work: No HPI HPI Comments History of Present Illness Details 33 y/o female presents with complaints of slufur/egg smell for the past 3 weeks. She notes associated mild pain with urination 5 times within the past 3 weeks. Her symptoms have been consistent and have not worsened. No constitutional symptoms. No urinary frequency/urgency. No discharge with urination. No vaginal discharge. No fishy odor She notes that she is sexually active, in a monogamous relationship, and has no concerns for STI PFSH Medical History delivery delivered Surgical History Hx of section Family History Mother High blood pressure Breast cancer Lung cancer High cholesterol Diabetes Cardiovascular disease Substance abuse in family Father Melanoma Maternal Aunt Substance abuse in family Social History (Updated 12/11/23 @ 16:03 by LILI Buck) Household Members: Spouse, Family and Children Both parents involved: No Caregiver staying overnight: No Housing: House Are you a primary medicare insurance specialist to a significant other at home: No Do you presently have visiting nurse or other home services: No 75 years or older and lives alone: No Alcohol intake: current Comment: on occasion, socially Patient Tobacco Use Status: Never used Tobacco Tobacco use type: Cigarette e-Cigarette/Vaping Use: Never Used Substance Use Type: Marijuana Patient : No service: No Current occupational status: unemployed Sexual orientation: Straight/Heterosexual Gender identity: Female Cognitive needs: No Hearing needs: No Vision needs: No Female Reproductive History Menstrual Date of last menstrual period: 01/17/24 Review of Systems Const Details: Denies chills, Denies fatigue, Denies fever(s), Denies headache(s) and Denies weakness Cardiac Denies chest pain, Denies claudication, Denies leg edema, Denies lightheadedness, Denies palpitations, Denies dyspnea, Denies dyspnea on exertion, Denies orthopnea and Denies other (Loss of consciousness) Resp Denies cough, Denies excessive phlegm production, Denies dyspnea, Denies dyspnea on exertion, Denies snoring and Denies wheezing Reports as per HPI Physical Exam Vital Signs: Last Vital Signs Temp 98.5 F 01/30/24 09:43 Pulse 74 01/30/24 09:43 Resp 16 01/30/24 09:43 BP 105/74 01/30/24 09:43 Pulse Ox 99 01/30/24 09:43 Oxygen Delivery Method Room Air 01/30/24 09:43 BMI result Body Mass Index 27.7 Const Other: General: comfortable and no acute distress Orientation/consciousness: patient oriented x3 Chest Chest palpation & inspection: normal inspection of the chest Resp Auscultation: clear to auscultation bilaterally Cardiac Palpation: normal PMI Heart sounds: S1 normal heart sound present, S2 normal heart sound present, no gallops, no murmur, no rubs No CVA tenderness Results AMB Urinalysis, Automated UA Leukoctes 0 Adi/uL Last Edit by Cat Gomez MA on 01/30/24 14:17 UA Nitrite Negative Last Edit by Cat Gomez MA on 01/30/24 14:17 UA Urobilinogen 3.5 mg/dL Last Edit by Cat Gomez MA on 01/30/24 14:17 UA Protein 0 mg/dL Last Edit by Cat Gomez MA on 01/30/24 14:17 UA pH 7.0 Last Edit by Cat Gomez MA on 01/30/24 14:17 UA Blood 0 Santhosh/uL Last Edit by Cat Gomez MA on 01/30/24 14:17 UA Specific [place] 1.015 Last Edit by Cat Gomez MA on 01/30/24 14:17 UA Ketone Negative Last Edit by Cat Gomez MA on 01/30/24 14:17 UA Bilirubin 0 mg/dL Last Edit by Cat Gomez MA on 01/30/24 14:17 UA Glucose 0 mg/dL Last Edit by Cat Gomez MA on 01/30/24 14:17 Results Reviewed Results Reviewed: Laboratory Last Values Urine pH (Auto) 7.0 01/30/24 10:38 Specific [place] (Auto) 1.015 01/30/24 10:38 Urine Protein (Auto) 0 mg/dL 01/30/24 10:38 Glucose (UA)(Auto) 0 mg/dL 01/30/24 10:38 Urine Ketones (Auto) Negative 01/30/24 10:38 Urine Blood (Auto) 0 Santhosh/uL 01/30/24 10:38 Urine Nitrite (Auto) Negative 01/30/24 10:38 Urine Bilirubin (Auto) 0 mg/dL 01/30/24 10:38 Urine Urobilinogen (Auto) 3.5 mg/dL 01/30/24 10:38 Leukocyte Esterase (Auto) 0 Adi/uL 01/30/24 10:38 Assessment & Plan Assessment & Plan (1) Foul smelling urine: Code(s): R82.90 - Unspecified abnormal findings in urine Plan: Reports sulfur/egg smell urine for the past 3 weeks. She also notes mild pain with urination x5 within the past 3 weeks. No urinary frequency/urgency. No discharge with urination. No vaginal discharge. No fishy odor Urine dipstick is unrevealing Likely related to foods or dehydration Adequate hydration encouraged Will send urine to the lab for urinalysis and culture Follow-up with OBGYN with worsening or new symptoms Verbalized understanding and agreed with the plan Orders: Orders UA CC w/rflx Micro + Cult Today R82.90 - Unspecified abnormal findings in urine AMB Urinalysis Automated Today Z13.9 - Encounter for screening, unspecified Coding Level of Care Code Est Pt Level 3 (97891) Diagnoses Foul smelling urine R82.90
[2024-01-30 09:43] VITALS: BP 105/74; PULSE 74; RESP 16; TEMP 36.9; O2SAT 99; BMI 27.7
== END 2024-01-30 10:27 | disposition home or self-care (01) ==
PROVIDERS: PCP Family Medicine; Visit Provider Nurse Practitioner Family
DX: R82.90 Unspecified abnormal findings in urine (principal); Z13.9 Encounter for screening, unspecified

== ENCOUNTER 2024-02-17 13:31 | Outpatient (REF) | payer OTHER, SELFPAY ==
[2024-02-18 02:53] LABS: CT PCR NOT DETECTED (Not Detect.); NG PCR NOT DETECTED (Not Detect.)
[2024-02-18 11:56] LABS: Bacterial Vaginosis PCR NEGATIVE (Negative); Candida Group PCR NOT DETECTED (Not Detect); Candida glab krusei PCR DETECTED (Not Detect); Trichomonas vaginalis PCR NOT DETECTED (Not Detect)
== END 2024-02-17 13:32 | disposition home or self-care (01) ==
LOC: HO.LAB 13:31
PROVIDERS: PCP Family Medicine; Visit Provider Obstetrics & Gynecology
DX: R82.90 Unspecified abnormal findings in urine (principal); R31.29 Other microscopic hematuria
CPT/HCPCS: 0352U; 81003; 87086; 87491; 87591; 99212

== ENCOUNTER 2024-02-17 13:31 | Outpatient (AMB) | payer OTHER, SELFPAY ==
[2024-02-17 13:35] VITALS: BP 118/74; BMI 27.6
--- NOTE | 2024-02-17 13:35 | A.OFFVIS_ITS ---
Vital Signs 02/17/24 13:35 Height 5 ft 5 in Weight 166 lb BMI 27.6 BP 118/74 Blood Pressure Location Lt brachial Position Sitting Intake Visit Reasons: ? infection per Dr. leyva Allergies No Known Allergies Allergy (Verified 02/17/24 13:37) HPI Comments Details: Presenting complaining of morning urine sulfur odor no associated vaginal discharge or pelvic pain, no dysuria or urinary frequency. The patient went to the urgent care urine dip was negative, and then was prescribed metronidazole for possible BV symptoms did not improve. [facility] Medical History delivery delivered Surgical History Hx of section Family History Mother High blood pressure Breast cancer Lung cancer High cholesterol Diabetes Cardiovascular disease Substance abuse in family Father Melanoma Maternal Aunt Substance abuse in family Social History Household Members: Spouse, Family and Children Both parents involved: No Caregiver staying overnight: No Housing: House Are you a primary assistant child care teacher to a significant other at home: No Do you presently have visiting nurse or other home services: No 75 years or older and lives alone: No Alcohol intake: current Comment: on occasion, socially Patient Tobacco Use Status: Never used Tobacco Tobacco use type: Cigarette e-Cigarette/Vaping Use: Never Used Substance Use Type: Marijuana service: No Current occupational status: unemployed Sexual orientation: Straight/Heterosexual Gender identity: Female Cognitive needs: No Hearing needs: No Vision needs: No Review of Systems Const All systems reviewed & are unremarkable except as noted in HPI and below Physical Exam Vital Signs: Last Vital Signs BP 118/74 02/17/24 13:35 BMI result Body Mass Index 27.6 General: Yes no CVA tenderness External Female Exam: normal external appearance and normal appearance of the urethra Speculum Exam - Vagina: normal appearance of the vagina, normal palpation, no lesions and no masses Speculum Exam - Cervix: normal appearance of the cervix, normal palpation, no lesions, no masses, nontender and Other cervical findings present (IUD string in place) Bimanual exam- vagina & uterus: normal bimanual exam, normal palpation, uterine size normal, normal palpation, uterine shape normal, No Cervical tenderness present and non-tender Bimanual Exam- Adnexa, other: normal adnexae Back/Spine/Pelvis Back: no CVA tenderness Results AMB Urinalysis, Automated UA Leukoctes 70 Adi/uL Last Edit by Ting Nguyen CMA on 02/17/24 13:51 UA Nitrite Negative Last Edit by Ting Nguyen CMA on 02/17/24 13:51 UA Urobilinogen 3.5 mg/dL Last Edit by Ting Nguyen CMA on 02/17/24 13:51 UA Protein 0 mg/dL Last Edit by Ting Nguyen CMA on 02/17/24 13:51 UA pH 7.0 Last Edit by Ting Nguyen CMA on 02/17/24 13:51 UA Blood 10 Santhosh/uL Last Edit by Ting Nguyen CMA on 02/17/24 13:51 UA Specific [place] 1.005 Last Edit by Ting Nguyen CMA on 02/17/24 13:51 UA Ketone Negative Last Edit by Ting Nguyen CMA on 02/17/24 13:51 UA Bilirubin 0 mg/dL Last Edit by Ting Nguyen CMA on 02/17/24 13:51 UA Glucose 0 mg/dL Last Edit by Ting Nguyen CMA on 02/17/24 13:51 Assessment & Plan Assessment & Plan (1) Microscopic hematuria: Code(s): R31.29 - Other microscopic hematuria Category: Medical Plan: Urine dip showed microscopic hematuria, urine culture sent. Will repeat urine dip in 2 weeks. Discussed with the patient the possible causes of microscopic hematuria including but not limited to: interstitial cystitis, polyps, stones, masses, urethral inflammatory processes and others. If Urine Culture is negative and repeat urine dip in 2 weeks shows persistent microscopic hematuria, will proceed with CT abdomen/pelvis and urology referral. Instructions given the patient to schedule a 2 week urine dip follow-up appo intment. All questions answered and the patient verbalized understanding. (2) Foul smelling urine: Code(s): R82.90 - Unspecified abnormal findings in urine Category: Medical Plan: Urine dip showed microscopic hematuria will send urine for culture and repeat urine dip in 2 weeks. GC/CT with BV panel collected, will check the results and treat accordingly. All questions answered, the patient verbalized understanding Coding Level of Care Code Est Pt Level 3 (91484) Diagnoses Microscopic hematuria R31.29 Foul smelling urine R82.90
== END 2024-02-17 14:00 | disposition home or self-care (01) ==
LOC: HO.HWS 13:31
PROVIDERS: PCP Family Medicine; Visit Provider Obstetrics & Gynecology
DX: R31.29 Other microscopic hematuria (principal); R82.90 Unspecified abnormal findings in urine
CPT/HCPCS: 99213

== ENCOUNTER 2024-02-17 13:47 | Outpatient (REF) | payer OTHER, SELFPAY | END 2024-02-17 13:48 | disposition home or self-care (01) | LOC: HO.LNP 13:47 | PROVIDERS: Visit Provider Obstetrics & Gynecology | DX: Z13.89 Encounter for screening for other disorder (principal) ==

== ENCOUNTER 2024-03-08 07:32 | Outpatient (AMB) | payer OTHER, SELFPAY ==
--- NOTE | 2024-03-08 07:32 | A.OFFVIS_ITS ---
Vital Signs 03/08/24 07:37 Height 5 ft 5 in Weight 165 lb 5.547 oz BMI 27.5 Intake Visit Reasons: 2 week urine dip Allergies No Known Allergies Allergy (Verified 02/17/24 13:37) HPI Comments Details: Presenting for follow-up regarding malodorous sulfur like urine odor. The following workup was done: Urine dip showed microscopic hematuria Urine culture was negative GC/CT and BV panel was negative head for positive Ama glabrata, the patient was prescribed Terazol 0.8% q.h.s. for 3 days, her symptoms did not improve Repeat urine dip today showed persistent microscopic hematuria The patient is having persistent malodorous, sulfur like urine odor. PFSH Medical History delivery delivered Surgical History Hx of section Family History Mother High blood pressure Breast cancer Lung cancer High cholesterol Diabetes Cardiovascular disease Substance abuse in family Father Melanoma Maternal Aunt Substance abuse in family Social History Household Members: Spouse, Family and Children Both parents involved: No Caregiver staying overnight: No Housing: House Are you a primary aged or disabled care worker to a significant other at home: No Do you presently have visiting nurse or other home services: No 75 years or older and lives alone: No Alcohol intake: current Comment: on occasion, socially Patient Tobacco Use Status: Never used Tobacco Tobacco use type: Cigarette e-Cigarette/Vaping Use: Never Used Substance Use Type: Marijuana service: No Current occupational status: unemployed Sexual orientation: Straight/Heterosexual Gender identity: Female Cognitive needs: No Hearing needs: No Vision needs: No Review of Systems Const All systems reviewed & are unremarkable except as noted in HPI and below Reports as per HPI and Reports no additional complaints GI Reports no additional complaints Reports no additional complaints Assessment & Plan Assessment & Plan (1) Microscopic hematuria: Comment: Foul smelling urine Code(s): R31.29 - Other microscopic hematuria Category: Medical Plan: Urine dip showed microscopic hematuria, urine culture sent was negative. Repeat urine dip showed persistent microscopic hematuria. Discussed with the patient the possible causes of microscopic hematuria including but not limited to: interstitial cystitis, polyps, stones, masses, urethral inflammatory processes and others. Will proceed with CT abdomen/pelvis and urology referral. Instructions given the patient to schedule a 2 week urine dip follow-up appointment. All questions answered and the patient verbalized understanding. Orders: Orders CT abdomen pelvis wo/w IV con Today R31.29 - Other microscopic hematuria Referrals Urology Referral R31.29 - Other microscopic hematuria Coding Level of Care Code Est Pt Level 3 (16280) Diagnoses Microscopic hematuria R31.29
[2024-03-08 07:37] VITALS: BMI 27.5
== END 2024-03-08 08:01 | disposition home or self-care (01) ==
LOC: HO.HWS 07:32
PROVIDERS: PCP Family Medicine; Visit Provider Obstetrics & Gynecology
DX: R31.29 Other microscopic hematuria (principal)
CPT/HCPCS: 99213

== ENCOUNTER → 2024-03-08 07:32 | Outpatient (BNVA) | payer OTHER, SELFPAY | PROVIDERS: PCP Family Medicine; Visit Provider Obstetrics & Gynecology | DX: R31.29 Other microscopic hematuria (principal) | CPT/HCPCS: 99212 ==

== ENCOUNTER 2024-05-07 07:47 | Outpatient (REF) | payer OTHER, SELFPAY ==
--- NOTE | ~2024-05-07 | CT_ITS ---
EXAMINATION: CT ABDOMEN PELVIS WITHOUT THEN WITH IV CONTRAST HISTORY: R31.29 - Other microscopic hematuria COMPARISON: None. TECHNIQUE: CT scan of the abdomen and pelvis was performed before and after the intravenous administration of 100 mL Omnipaque 350. Postcontrast images were obtained using a split bolus technique. Coronal and sagittal reformatted images were generated and reviewed. Oral contrast material was not administered per department protocol. This CT exam was performed with one or more of the following dose reduction techniques: automated exposure control, adjustment of the mA and/or kV according to patient size, use of iterative reconstruction technique. DLP: 771 mGy-cm ABDOMEN: LOWER CHEST: The visualized lung bases are clear. There is no pleural effusion. CARDIOVASCULATURE: The heart is normal in size. There is no pericardial effusion. LIVER: The liver is normal in size and contour. No liver mass is identified. The hepatic and portal veins are patent. GALLBLADDER / BILE DUCTS: The gallbladder is unremarkable. There is no intra or extrahepatic biliary ductal dilatation. SPLEEN: The spleen is normal in size. No focal splenic lesion is identified. PANCREAS: The pancreas is unremarkable in appearance. ADRENAL GLANDS: Within normal limits. KIDNEYS/RETROPERITONEUM: There is a 3 mm nonobstructing calculus at the lower pole of the right kidney. No left ureteral calculi are identified. There is no hydronephrosis or hydroureter. There is a multiseptated cystic structure at the upper pole the right kidney measuring 5.7 x 2.7 x 3.8 cm. This distorts the collecting system but does not demonstrate enhancement or associated soft tissue components. It is difficult to determine the number of septations based on this examination. Multiple additional subcentimeter cysts are noted in both kidneys. The bilateral intrarenal collecting systems are otherwise unremarkable in appearance. The ureters are normal in caliber. There is segmental visualization of the right ureter. The left ureter is well opacified. No ureteral filling defects are identified. LYMPH NODES: No abdominal or pelvic lymphadenopathy. VASCULATURE: The abdominal aorta is normal in caliber. MESENTERY/PERITONEUM: No free fluid. No masses. There is no free intraperitoneal gas. STOMACH: The stomach is collapsed, limiting evaluation. SMALL BOWEL: The small bowel is normal in caliber. COLON: There is a moderate amount of stool throughout the colon. APPENDIX: Normal. URINARY BLADDER/PELVIC ORGANS: The urinary bladder is partially collapsed, limiting evaluation. An IUD is noted in the endometrial cavity of the uterus. BONES / SOFT TISSUES: No suspicious bony or soft tissue abnormalities. CT/CT abdomen pelvis wo/w IV con IMPRESSION: 1. 3 mm nonobstructing calculus at the lower pole of the right kidney. 2. 5.7 x 2.7 x 3.8 cm multiseptated cystic structure at the upper pole of the right kidney. While there is no enhancement or evidence of solid components, it is difficult to determine the number of septations on this examination. Ultrasound evaluation is suggested. Electronically signed by: Rusty Harrison MD 05/07/2024 11:40 AM HAR[facility]
[2024-05-07] MEDS: iohexoL 350 MG/ML 100 ML INFUS..BTL IV (11:13)
== END 2024-05-07 07:48 | disposition home or self-care (01) ==
LOC: HO.CT 07:47
PROVIDERS: PCP Family Medicine; Visit Provider Obstetrics & Gynecology
DX: R31.29 Other microscopic hematuria (principal)
CPT/HCPCS: 74178; Q9967

== ENCOUNTER → 2024-05-07 07:49 | Outpatient (BNV) | payer OTHER, SELFPAY | PROVIDERS: PCP Family Medicine; Visit Provider Radiology Diagnostic Radiology | DX: R31.29 Other microscopic hematuria (principal) | CPT/HCPCS: 74178 ==

== ENCOUNTER 2024-05-10 08:56 | Outpatient (AMB) | payer OTHER, SELFPAY ==
--- NOTE | 2024-05-10 08:57 | A.OFFVIS_ITS ---
Intake Visit Reasons: microscopic hematuria Allergies No Known Allergies Allergy (Verified 05/10/24 09:45) Medication List - Last Reconciled 05/10/24 by BENJAMIN Fung-GARY amoxicillin 50 mg PO Q8H citalopram 20 mg PO DAILY 90 days copper (ParaGard T 380A) intrauterine methamphetamine 5 mg PO BID spironolactone 100 mg PO DAILY terconazole 0.8% 1 appful vaginal BEDTIME 3 days HPI Comments Details: Dorothy is a 33-year-old female patient of . She presents to the office today as a new patient for microscopic hematuria as well as foul- smelling urine. In discussion with the patient today she reports noting over the last few months she has had sulfur like smelling urine. She denies any changes to her diet. 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 These results were reviewed with the patient today 3 mm nonobstructing calculus in the lower pole of the right kidney. 5.7 cm multi- septated cystic structure at the upper pole of the right kidney where there is no enhancement or evidence of solid components, it is difficult to determine the number of septations on this examination ultrasound evaluation is suggested per radiology report. She otherwise denies urinary urgency, urinary frequency, i ncontinence, nocturia, hematuria, dysuria, changes to urinary stream, flank pain, fever, and or chills. In office urinalysis results reviewed with the patient today 1+ leukocytes and trace proteinuria noted. No microscopic hematuria noted. She denies any known history of workplace chemical exposure or smoking. We discussed persistent microscopic hematuria verses intermittent microscopic hematuria. We discussed at length potential causes of microscopic hematuria as well as foul-smelling urine. When asked she reports to be drinking at least 36 oz of water daily. She otherwise offers no other issues or concerns at this time. [facility] Medical History delivery delivered Surgical History Hx of section Family History Mother High blood pressure Breast cancer Lung cancer High cholesterol Diabetes Cardiovascular disease Substance abuse in family Father Melanoma Maternal Aunt Substance abuse in family Social History Household Members: Spouse, Family and Children Both parents involved: No Caregiver staying overnight: No Housing: House Are you a primary care information associate to a significant other at home: No Do you presently have visiting nurse or other home services: No 75 years or older and lives alone: No Alcohol intake: current Comment: on occasion, socially Patient Tobacco Use Status: Never used Tobacco Tobacco use type: Cigarette e-Cigarette/Vaping Use: Never Used Substance Use Type: Marijuana service: No Current occupational status: unemployed Sexual orientation: Straight/Heterosexual Gender identity: Female Cognitive needs: No Hearing needs: No Vision needs: No Review of Systems Const All systems reviewed & are unremarkable except as noted in HPI and below Physical Exam Const General: cooperative, healthy appearing, comfortable, no acute distress, well developed, alert and awake Orientation/consciousness: patient oriented x3 Limitations: no limitations HEENT Head: Yes normal to inspection, Yes normocephalic and Yes atraumatic Ears: hearing grossly normal bilaterally Eyes General: appearance normal, both eyes and all related structures Neck Neck: Yes normal visual inspection and Yes trachea midline Chest Chest palpation & inspection: normal inspection of the chest Resp Effort & Inspection: normal respiratory effort and able to speak in complete sentences Cardio Rate: regular rate GI Inspection: Yes normal to inspection General: Yes no CVA tenderness Back/Spine/Pelvis Back: no CVA tenderness Skin General skin exam: no rashes or lesions noted Neuro General: patient oriented x3 Extrem General: Yes normal to inspection Psych Appearance: grossly normal and well kempt Mental Status: mental status grossly normal Speech and movement: Normal speech and movement present and Clear speech present Affect: normal affect Attitude: cooperative Thought process: Normal thought process present Thought content: Normal thought content present Insight: Fair insight present (Psych) Judgement: Fair judgement present (Psych) Results AMB Urinalysis, Automated UA Leukoctes 70 Adi/uL Last Edit by Ting Nguyen CMA on 05/10/24 09:11 UA Nitrite Negative Last Edit by Ting Nguyen CMA on 05/10/24 09:11 UA Urobilinogen 0.2 mg/dL Last Edit by Ting Nguyen CMA on 05/10/24 09:11 UA Protein 15 mg/dL Last Edit by Ting Nguyen CMA on 05/10/24 09:11 UA pH 7.0 Last Edit by Ting Nguyen CMA on 05/10/24 09:11 UA Blood 0 Santhosh/uL Last Edit by Ting Nguyen CMA on 05/10/24 09:11 UA Specific [place] 1.015 Last Edit by Ting Nguyen CMA on 05/10/24 09:11 UA Ketone Negative Last Edit by Ting Nguyen CMA on 05/10/24 09:11 UA Bilirubin 0 mg/dL Last Edit by Ting Nguyen CMA on 05/10/24 09:11 UA Glucose 0 mg/dL Last Edit by Ting Nguyen CMA on 05/10/24 09:11 Results Reviewed Results Reviewed: Laboratory Last Values Urine pH (Auto) 7.0 05/10/24 09:09 Specific [place] (Auto) 1.015 05/10/24 09:09 Urine Protein (Auto) 15 mg/dL 05/10/24 09:09 Glucose (UA)(Auto) 0 mg/dL 05/10/24 09:09 Urine Ketones (Auto) Negative 05/10/24 09:09 Urine Blood (Auto) 0 Santhosh/uL 05/10/24 09:09 Urine Nitrite (Auto) Negative 05/10/24 09:09 Urine Bilirubin (Auto) 0 mg/dL 05/10/24 09:09 Urine Urobilinogen (Auto) 0.2 mg/dL 05/10/24 09:09 Leukocyte Esterase (Auto) 70 Adi/uL 05/10/24 09:09 Date of Service: 05/07/24 EXAMINATION: CT ABDOMEN PELVIS WITHOUT THEN WITH IV CONTRAST ABDOMEN: LOWER CHEST: The visualized lung bases are clear. There is no pleural effusion. CARDIOVASCULATURE: The heart is normal in size. There is no pericardial effusion. LIVER: The liver is normal in size and contour. No liver mass is identified. The hepatic and portal veins are patent. GALLBLADDER / BILE DUCTS: The gallbladder is unremarkable. There is no intra or extrahepatic biliary ductal dilatation. SPLEEN: The spleen is normal in size. No focal splenic lesion is identified. PANCREAS: The pancreas is unremarkable in appearance. ADRENAL GLANDS: Within normal limits. KIDNEYS/RETROPERITONEUM: There is a 3 mm nonobstructing calculus at the lower pole of the right kidney. No left ureteral calculi are identified. There is no hydronephrosis or hydroureter. There is a multiseptated cystic structure at the upper pole the right kidney measuring 5.7 x 2.7 x 3.8 cm. This distorts the collecting system but does not demonstrate enhancement or associated soft tissue components. It is difficult to determine the number of septations based on this examination. Multiple additional subcentimeter cysts are noted in both kidneys. The bilateral intrarenal collecting systems are otherwise unremarkable in appearance. The ureters are normal in caliber. There is segmental visualization of the right ureter. The left ureter is well opacified. No ureteral filling defects are identified. LYMPH NODES: No abdominal or pelvic lymphadenopathy. VASCULATURE: The abdominal aorta is normal in caliber. MESENTERY/PERITONEUM: No free fluid. No masses. There is no free intraperitoneal gas. STOMACH: The stomach is collapsed, limiting evaluation. SMALL BOWEL: The small bowel is normal in caliber. COLON: There is a moderate amount of stool throughout the colon. APPENDIX: Normal. URINARY BLADDER/PELVIC ORGANS: The urinary bladder is partially collapsed, limiting evaluation. An IUD is noted in the endometrial cavity of the uterus. BONES / SOFT TISSUES: No suspicious bony or soft tissue abnormalities. IMPRESSION: 1. 3 mm nonobstructing calculus at the lower pole of the right kidney. 2. 5.7 x 2.7 x 3.8 cm multiseptated cystic structure at the upper pole of the right kidney. While there is no enhancement or evidence of solid components, it is difficult to determine the number of septations on this examination. Ultrasound evaluation is suggested. Assessment & Plan Assessment & Plan (1) Foul smelling urine: Code(s): R82.90 - Unspecified abnormal findings in urine Category: Medical (2) Microscopic hematuria: Comment: Foul smelling urine Code(s): R31.29 - Other microscopic hematuria Category: Medical (3) Nephrolithiasis: Code(s): N20.0 - Calculus of kidney Category: Medical (4) Proteinuria: Code(s): R80.9 - Proteinuria, unspecified Category: Medical Plan In office urinalysis results reviewed with the patient today; will send for microgen testing. Recent CT results reviewed with the patient today; as noted above. Will obtain retroperitoneal ultrasound for further assessment evaluation. We discussed at length potential causes of foul-smelling urine. Patient reports be happy with current voiding parameters. We discussed at length importance of hydration relation to foul-smelling urine as well as nephrolithiasis and overall health and well-being. We discussed at length potential causes of proteinuria as well as surveillance monitoring however patient would like referral to Nephrology. Follow-up in 1-3 months with imaging to be completed prior; or sooner with any issues, concerns, and or questions. Orders: Orders AMB Urinalysis Automated Today R31.29 - Other microscopic hematuria US retroperitoneal comp Today R31.29 - Other microscopic hematuria, R82.90 - Unspecified abnormal findings in urine Referrals Nephrology Referral R80.9 - Proteinuria, unspecified Patient Instructions: The patient had an opportunity to ask questions regarding the treatment plan. All questions were answered. Physical exam, labs, and imaging were discussed and reviewed in detail. As well as risks, benefits, and discussion of treatment choices. No major barriers to understanding were identified. The patient expressed understanding and agreement with the above treatment plan. The patient was made aware they should contact our office by phone for worsening of their current condition, the appearance of new symptoms, or with any questions or concerns. Compliance is encouraged with any medications and follow up testing that is ordered. It is a privilege to be allowed the opportunity to participate in? your urological care.? Again, if you have any questions or concerns If you have any questions or concerns please do not hesitate to contact me. The office is [phone]. This note is constructed using voice recognition software. While every effort has been made to ensure accuracy mate relief errors may have been included. Yours sincerely, MARIA LUISA Fung Coding Level of Care Code New Pt Level 3 (33013) Diagnoses Foul smelling urine R82.90 Microscopic hematuria R31.29 Nephrolithiasis N20.0 Proteinuria R80.9
== END 2024-05-10 09:35 | disposition home or self-care (01) ==
PROVIDERS: PCP Family Medicine; Visit Provider Nurse Practitioner Family
DX: R82.90 Unspecified abnormal findings in urine (principal); R31.29 Other microscopic hematuria; N20.0 Calculus of kidney; R80.9 Proteinuria, unspecified
CPT/HCPCS: 99203

== ENCOUNTER → 2024-05-10 08:56 | Outpatient (BNVA) | payer OTHER, SELFPAY | PROVIDERS: PCP Family Medicine; Visit Provider Nurse Practitioner Family | DX: R82.90 Unspecified abnormal findings in urine (principal); R31.29 Other microscopic hematuria; R80.9 Proteinuria, unspecified; N20.0 Calculus of kidney | CPT/HCPCS: 81003; 99202 ==

== ENCOUNTER 2024-05-18 14:06 | Outpatient (AMB) | payer OTHER, SELFPAY ==
[2024-05-18 14:10] VITALS: BP 102/70; PULSE 87; O2SAT 98; BMI 27.1
--- NOTE | 2024-05-18 14:10 | HO.NEPHOV ---
Vital Signs 05/18/24 14:10 Height 5 ft 5 in Weight 163 lb BMI 27.1 BP 102/70 Blood Pressure Location Lt brachial Position Sitting Pulse 87 Pulse Source Pulse Oximeter Pulse Oximetry (%) 98 Oxygen Delivery Method Room Air Intake Visit Reasons: INP: Proteinuria/ Conf [employer] Required: No Accompanied by: Self / Same As Patient Allergies No Known Allergies Allergy (Verified 05/18/24 14:11) Medication List - Last Reconciled 05/18/24 by Yash Richards MD citalopram 20 mg PO DAILY 90 days copper (ParaGard T 380A) intrauterine dextroamphetamine-amphetamine 10 mg (Adderall) 10 mg PO DAILY fluconazole 150 mg PO Q3D 3 doses methamphetamine 5 mg PO BID nitrofurantoin monohyd/m-cryst 100 mg (Macrobid) 100 mg PO BID 10 days spironolactone 100 mg PO DAILY terconazole 0.8% 1 appful vaginal BEDTIME 3 days HPI Comments Details: Pleasant 33-year-old woman referred for proteinuria. Overall Dorothy has been enjoying reasonably good health. Recently she had foul-smelling urine. She had a course of amoxicillin for a dental infection and following this this symptom disappeared. Repeat culture has been ordered. Nitrofurantoin and fluconazole has been prescribed. During evaluation she was found to have 1.3 mm nonobstructing renal stone. There was a cyst on the right kidney which has been followed by Urology. Re-evaluation urinalysis showed 1+ protein by dipstick and hence this evaluation All medications were reviewed She is on spironolactone for acne. [facility] Medical History delivery delivered Surgical History Hx of section Family History Mother High blood pressure Breast cancer Lung cancer High cholesterol Diabetes Cardiovascular disease Substance abuse in family Father Melanoma Maternal Aunt Substance abuse in family Social History Household Members: Spouse, Family and Children Both parents involved: No Caregiver staying overnight: No Housing: House Are you a primary career based intervention coordinator to a significant other at home: No Do you presently have visiting nurse or other home services: No 75 years or older and lives alone: No Alcohol intake: current Comment: on occasion, socially Patient Tobacco Use Status: Never used Tobacco Tobacco use type: Cigarette e-Cigarette/Vaping Use: Never Used Substance Use Type: Marijuana service: No Current occupational status: unemployed Sexual orientation: Straight/Heterosexual Gender identity: Female Cognitive needs: No Hearing needs: No Vision needs: No Review of Systems Const Denies fever(s) and Denies weight loss Card Denies chest pain Resp Denies cough and Denies hemoptysis GI Denies abdominal pain, Denies diarrhea and Denies nausea Musc Denies back pain Neuro Denies focal weakness Physical Exam Vital Signs: Last Vital Signs Pulse 87 05/18/24 14:10 BP 102/70 05/18/24 14:10 Pulse Ox 98 05/18/24 14:10 Oxygen Delivery Method Room Air 05/18/24 14:10 BMI result Body Mass Index 27.1 Comfortable Neck supple no JVD. Lungs entry equal no rales. Heart S1-S2 heard no gallop or rub. Abdomen soft nontender. Neuro alert awake oriented. No asterixis. Extremities no edema. Results Reviewed Results Reviewed: CT/CT abdomen pelvis wo/w IV con IMPRESSION: 1. 3 mm nonobstructing calculus at the lower pole of the right kidney. 2. 5.7 x 2.7 x 3.8 cm multiseptated cystic structure at the upper pole of the right kidney. While there is no enhancement or evidence of solid components, it is difficult to determine the number of septations on this examination. Ultrasound evaluation is suggested. Nephrology Results: Urine Protein Negative mg/dL (Neg-Trace) 01/30/24 Assessment & Plan Assessment & Plan (1) Nephrolithiasis: Code(s): N20.0 - Calculus of kidney Category: Medical (2) Proteinuria: Code(s): R80.9 - Proteinuria, unspecified Category: Medical Plan 33-year-old woman with minimal proteinuria by dipstick. History of on renal stone which was an incidental finding during routine imaging. Possible UTI. Plan Obtain 24 urine collection for stone studies along with protein excretion. Encouraged to stand low-sodium diet Increase p.o. fluid intake to maintain urine output of 2 L. Further workup will depend on the outcome of the baseline investigations. Orders: Orders Sodium, 24Hr Urine Group Today N20.0 - Calculus of kidney Creatinine, 24 Hr Group Today N20.0 - Calculus of kidney Calcium, 24 Hr Ur Today N20.0 - Calculus of kidney Oxalate, 24 Hr Today N20.0 - Calculus of kidney Uric Acid, 24Hr Urine Group Today N20.0 - Calculus of kidney Citric Acid 24hr Urine Today N20.0 - Calculus of kidney Protein, 24 Hr Urine Group Today N20.0 - Calculus of kidney, R80.9 - Proteinuria, unspecified Coding Level of Care Code New Pt Level 4 (36054) Diagnoses Nephrolithiasis N20.0 Proteinuria R80.9
== END 2024-05-18 14:30 | disposition home or self-care (01) ==
PROVIDERS: PCP Family Medicine; Referring Provider Nurse Practitioner Family; Visit Provider Internal Medicine Hypertension Specialist
DX: N20.0 Calculus of kidney (principal); R80.9 Proteinuria, unspecified
CPT/HCPCS: 99204

== ENCOUNTER → 2024-05-18 14:06 | Outpatient (BNVA) | payer OTHER, SELFPAY | PROVIDERS: PCP Family Medicine; Referring Provider Nurse Practitioner Family; Visit Provider Internal Medicine Hypertension Specialist | DX: R80.9 Proteinuria, unspecified (principal); N20.0 Calculus of kidney | CPT/HCPCS: 99202 ==

== ENCOUNTER 2024-06-18 11:02 | Outpatient (REF) | payer OTHER, SELFPAY ==
[2024-06-18 11:45] LABS: Creatinine, mg/dL 137.35; Uric Acid, mg/dL 68.9 mg/dL
[2024-06-18 11:59] LABS: Creatinine, mg/dL 134.39; Protein mg/dL 7 mg/dL
[2024-06-18 12:51] LABS: Creatinine, 24Hr Urine 0.8 G/Day (1.0-2.0); Creatinine, 24Hr Urine 0.9 G/Day (1.0-2.0); Protein 24 Hr Urine < 44 mg/Day (<150); Sodium 24 Hr Urine 110.6 mmol/Day (40-220); Total Volume 24 Hour Urine 625 mL; Uric Acid, 24 Hr Urine 430.6 mg/Day (250-750)
[2024-06-23 05:09] LABS: 24hr Urine Total Volume 625 mL; Oxalic Acid 24 Urine 18.6 mg/24 h (3.6-38.0)
[2024-06-23 17:49] LABS: Calcium, 24 Hr Urine 138 mg/24 h; Calcium/Creatinine Ratio 183 mg/g creat (30-275); Creatinine 24Hr Urine 0.76 g/24 h (0.50-2.15)
[2024-06-25 06:38] LABS: 24hr Urine Total Volume 625 mL; Citric Acid, 24hr Urine 497 mg/24 h (100-1300); Citric Acid/Creat Ratio 24U 577 mg/g creat (180-1070); Creatinine, 24U 0.86 g/24 h (0.50-2.15)
== END 2024-06-18 11:03 | disposition home or self-care (01) ==
LOC: HO.LNP 11:02
PROVIDERS: Visit Provider Internal Medicine Hypertension Specialist
DX: N20.0 Calculus of kidney (principal); R80.9 Proteinuria, unspecified
CPT/HCPCS: 82340; 82507; 83945; 84156; 84300; 84560

== ENCOUNTER 2024-06-29 15:11 | Outpatient (AMB) | payer OTHER, SELFPAY ==
--- NOTE | 2024-06-29 15:07 | HO.NEPHOV ---
Vital Signs 06/29/24 15:08 Height 5 ft 5 in Weight 155 lb BMI 25.8 BP 108/70 Blood Pressure Location Lt brachial Position Sitting Pulse 89 Pulse Source Pulse Oximeter Pulse Oximetry (%) 98 Oxygen Delivery Method Room Air Intake Visit Reasons: Nephrolithiasis/ Conf Population Health Manager Required: No Accompanied by: Self / Same As Patient Allergies No Known Allergies Allergy (Verified 06/29/24 15:09) Medication List - Last Reconciled 06/29/24 by Yash Richards MD citalopram 20 mg PO DAILY 90 days copper (ParaGard T 380A) intrauterine dextroamphetamine-amphetamine 10 mg (Adderall) 10 mg PO DAILY spironolactone 100 mg PO DAILY terconazole 0.8% 1 appful vaginal BEDTIME 3 days HPI Comments Details: Pleasant 33-year-old woman referred for proteinuria. Overall Dorothy has been enjoying reasonably good health. Recently she had foul-smelling urine. She had a course of amoxicillin for a dental infection and following this this symptom disappeared. Repeat culture has been ordered. Nitrofurantoin and fluconazole has been prescribed. During evaluation she was found to have 1.3 mm nonobstructing renal stone. There was a cyst on the right kidney which has been followed by Urology. Re-evaluation urinalysis showed 1+ protein by dipstick and hence this evaluation All medications were reviewed She is on spironolactone for acne. [facility] Medical History delivery delivered Surgical History Hx of section Family History Mother High blood pressure Breast cancer Lung cancer High cholesterol Diabetes Cardiovascular disease Substance abuse in family Father Melanoma Maternal Aunt Substance abuse in family Social History Household Members: Spouse, Family and Children Both parents involved: No Caregiver staying overnight: No Housing: House Are you a primary transitional care liaison to a significant other at home: No Do you presently have visiting nurse or other home services: No 75 years or older and lives alone: No Alcohol intake: current Comment: on occasion, socially Patient Tobacco Use Status: Never used Tobacco Tobacco use type: Cigarette e-Cigarette/Vaping Use: Never Used Substance Use Type: Marijuana service: No Current occupational status: unemployed Sexual orientation: Straight/Heterosexual Gender identity: Female Cognitive needs: No Hearing needs: No Vision needs: No Physical Exam Vital Signs: Last Vital Signs Pulse 89 06/29/24 15:08 BP 108/70 06/29/24 15:08 Pulse Ox 98 06/29/24 15:08 Oxygen Delivery Method Room Air 06/29/24 15:08 BMI result Body Mass Index 25.8 Comfortable Neck supple no JVD. Lungs entry equal no rales. Heart S1-S2 heard no gallop or rub. Abdomen soft nontender. Neuro alert awake oriented. No asterixis. Extremities no edema. Results Reviewed Results Reviewed: CT/CT abdomen pelvis wo/w IV con IMPRESSION: 1. 3 mm nonobstructing calculus at the lower pole of the right kidney. 2. 5.7 x 2.7 x 3.8 cm multiseptated cystic structure at the upper pole of the right kidney. While there is no enhancement or evidence of solid components, it is difficult to determine the number of septations on this examination. Ultrasound evaluation is suggested. Nephrology Results: No Data to Display Assessment & Plan Assessment & Plan (1) Nephrolithiasis: Code(s): N20.0 - Calculus of kidney Category: Medical (2) Proteinuria: Code(s): R80.9 - Proteinuria, unspecified Category: Medical Plan 33-year-old woman with minimal proteinuria by dipstick. History of on renal stone which was an incidental finding during routine imaging. 24 urine collection for stone studies were reviewed. No significant proteinuria -no further workup is required at this time Volume of 625. Urine calcium excretion citrate excretion were normal. Encouraged to stay on low-sodium diet Increase p.o. fluid intake to maintain urine output of 2 L. Renal cysts seen on CT scan. Follow up Ultrasound scheduled for next month. Coding Level of Care Code Est Pt Level 3 (12574) Diagnoses Nephrolithiasis N20.0 Proteinuria R80.9
[2024-06-29 15:08] VITALS: BP 108/70; PULSE 89; O2SAT 98; BMI 25.8
== END 2024-06-29 15:35 | disposition home or self-care (01) ==
LOC: HO.HKA 15:11
PROVIDERS: PCP Family Medicine; Visit Provider Internal Medicine Hypertension Specialist
DX: N20.0 Calculus of kidney (principal); R80.9 Proteinuria, unspecified
CPT/HCPCS: 99213

== ENCOUNTER → 2024-06-29 15:11 | Outpatient (BNVA) | payer OTHER, SELFPAY | PROVIDERS: PCP Family Medicine; Visit Provider Internal Medicine Hypertension Specialist | DX: N20.0 Calculus of kidney (principal); R80.9 Proteinuria, unspecified | CPT/HCPCS: 99212 ==

== ENCOUNTER 2024-07-30 09:46 | Outpatient (REF) | payer OTHER, SELFPAY ==
--- NOTE | ~2024-07-30 | US_ITS ---
CLINICAL HISTORY: R82.90 - Unspecified abnormal findings in urine US retroperitoneum with color Doppler Comparison: CT/MD/SR - CT ABDOMEN PELVIS WO/W IV CON - 05/07/24 07:57 EST Findings: Right kidney normal size and echotexture, 9.6 cm length. No hydronephrosis. Normal color flow. Multi-septated stricture structure upper pole measuring 4.6 x 3.2 x 4.3 cm. Innumerable septate are both thin and mildly thickened. MRI correlation is advised. Midpole anechoic cyst measuring 8 x 8 x 9 mm lower pole anechoic cyst measuring 11 x 10 x 12 mm. Nonobstructing caliceal stone upper pole measuring 3 x 3 x 2 mm Left kidney normal size and echotexture, 11.2 cm in length. No hydronephrosis. Normal color flow. Pelvicaliectasis on the left no nephrolithiasis or renal masses Urinary bladder is unremarkable. Prevoid volume 223.0 mL. Postvoid volume 13.7 mL. Ureteral jets are visualized bilaterally Complex probable ovarian cysts on the left measuring 4 x 2.3 x 3.4 cm correlate with pelvic sonogram Impression: 1. Multi-septated cystic lesion upper pole right kidney dedicated MRI with contrast renal protocol is recommended 2. Benign renal cortical cysts right kidney. Nephrolithiasis on the right without evidence of obstructive uropathy. Mild pelvicaliectasis on the left. 3. Borderline elevated postvoid residual 4. Complex cyst probably ovarian in origin left adnexa correlate with a dedicated pelvic ultrasound This document has been electronically signed by: Samson Alvarado MD on 07/30/2024 12:31:52
== END 2024-07-30 09:47 | disposition home or self-care (01) ==
LOC: HO.US 09:46
PROVIDERS: PCP Family Medicine; Visit Provider Nurse Practitioner Family
DX: R82.90 Unspecified abnormal findings in urine (principal); R31.29 Other microscopic hematuria
CPT/HCPCS: 76770

== ENCOUNTER → 2024-07-30 09:49 | Outpatient (BNV) | payer OTHER, SELFPAY | PROVIDERS: PCP Family Medicine; Visit Provider Radiology Diagnostic Radiology | DX: R82.90 Unspecified abnormal findings in urine (principal) | CPT/HCPCS: 76770 ==

== ENCOUNTER 2024-08-10 12:30 | Outpatient (AMB) | payer OTHER, SELFPAY ==
--- NOTE | 2024-08-10 12:31 | A.OFFVIS_ITS ---
Intake Visit Reasons: 3m/US(set) Intake Note: Patient presents today for tele visit follow up on: ultrasound results Imaging Completed: 07/30/24 Urology Medications: none Blood Thinner: none Microfilm Processor Required: No Allergies No Known Allergies Allergy (Verified 08/10/24 13:10) Medication List - Last Reconciled 08/10/24 by BENJAMIN Fung-GARY citalopram 20 mg PO DAILY 90 days copper (ParaGard T 380A) intrauterine dextroamphetamine-amphetamine 10 mg (Adderall) 10 mg PO DAILY spironolactone 100 mg PO DAILY terconazole 0.8% 1 appful vaginal BEDTIME 3 days HPI Comments Details: Dorothy is a 33-year-old female patient of . She is being followed up on today via video telehealth for her microscopic hematuria as well as foul-smelling urine. In discussion with the patient today she reports foul- smelling urine subsided after treatment with amoxicillin that she had been on for dental issue she had been experiencing. Recent retroperitoneal ultrasound results were reviewed with the patient today. Multi septated structure measuring 4.6 cm with innumerable septated cysts throughout the right kidney MRI correlation is advised however patient with recent CT 05/15 noting multi septated structure in the upper pole of the right kidney measuring 5.7 cm. Nonobstructing 3 mm calyceal stone in the upper pole of the right kidney. Left kidney with no hydronephrosis, nephrolithiasis, or renal masses. The urinary bladder is unremarkable. Complex probable ovarian cyst on the left measuring 4 cm. We discussed surveillance monitoring of renal cysts and nephrolithiasis. We also discussed following up with stone mill operator regarding complex probable ovarian cyst on the left. She otherwise denies urinary urgency, urinary frequency, incontinence, nocturia, hematuria, dysuria, changes to urinary stream, flank pain, fever, and or chills. She otherwise offers no other issues or concerns at this time. [facility] Medical History delivery delivered Surgical History Hx of section Family History Mother High blood pressure Breast cancer Lung cancer High cholesterol Diabetes Cardiovascular disease Substance abuse in family Father Melanoma Maternal Aunt Substance abuse in family Social History Household Members: Spouse, Family and Children Both parents involved: No Caregiver staying overnight: No Housing: House Are you a primary director of health care marketing to a significant other at home: No Do you presently have visiting nurse or other home services: No 75 years or older and lives alone: No Alcohol intake: current Comment: on occasion, socially Patient Tobacco Use Status: Never used Tobacco Tobacco use type: Cigarette e-Cigarette/Vaping Use: Never Used Substance Use Type: Marijuana service: No Current occupational status: unemployed Sexual orientation: Straight/Heterosexual Gender identity: Female Cognitive needs: No Hearing needs: No Vision needs: No Review of Systems Const All systems reviewed & are unremarkable except as noted in HPI and below Physical Exam Const General: cooperative, healthy appearing, comfortable, no acute distress, well developed, alert and awake Orientation/consciousness: patient oriented x3 Resp Effort & Inspection: normal respiratory effort and able to speak in complete sentences Neuro General: patient oriented x3 Psych Appearance: grossly normal and well kempt Speech and movement: Clear speech present Affect: normal affect Attitude: cooperative Thought process: Normal thought process present Thought content: Normal thought content present Insight: Fair insight present (Psych) Judgement: Fair judgement present (Psych) Telehealth Telehealth Telehealth Platform: [facility] Location of provider rendering services: practice address Location of patient: address on file Patient Identification confirmed using: Name, : Yes Telehealth method: video Patient verbally consented to treatment: Yes Patient verbally consented to billing insurance company: Yes Patient informed of any privacy concerns related to visit: Yes Minutes spent on Phone/Video with Pt.: 15 Results Reviewed Results Reviewed: Date of Service: 07/30/24 Procedure(s): US retroperitoneal comp Findings: Right kidney normal size and echotexture, 9.6 cm length. No hydronephrosis. Normal color flow. Multi-septated stricture structure upper pole measuring 4.6 x 3.2 x 4.3 cm. Innumerable septate are both thin and mildly thickened. MRI correlation is advised. Midpole anechoic cyst measuring 8 x 8 x 9 mm lower pole anechoic cyst measuring 11 x 10 x 12 mm. Nonobstructing caliceal stone upper pole measuring 3 x 3 x 2 mm Left kidney normal size and echotexture, 11.2 cm in length. No hydronephrosis. Normal color flow. Pelvicaliectasis on the left no nephrolithiasis or renal masses Urinary bladder is unremarkable. Prevoid volume 223.0 mL. Postvoid volume 13.7 mL. Ureteral jets are visualized bilaterally Complex probable ovarian cysts on the left measuring 4 x 2.3 x 3.4 cm correlate with pelvic sonogram Impression: 1. Multi-septated cystic lesion upper pole right kidney dedicated MRI with contrast renal protocol is recommended 2. Benign renal cortical cysts right kidney. Nephrolithiasis on the right without evidence of obstructive uropathy. Mild pelvicaliectasis on the left. 3. Borderline elevated postvoid residual 4. Complex cyst probably ovarian in origin left adnexa correlate with a dedicated pelvic ultrasound Assessment & Plan Assessment & Plan (1) Renal cyst: Code(s): N28.1 - Cyst of kidney, acquired Category: Medical (2) Nephrolithiasis: Code(s): N20.0 - Calculus of kidney Category: Medical (3) Microscopic hematuria: Comment: Foul smelling urine Code(s): R31.29 - Other microscopic hematuria Category: Medical (4) Foul smelling urine: Code(s): R82.90 - Unspecified abnormal findings in urine Category: Medical Plan Recent retroperitoneal ultrasound results reviewed with the patient today; as noted above. We discussed surveillance monitoring of renal cysts. She currently denies any UTI like symptoms and or bothersome urinary issues. We discussed follow-up with stone mill operator regarding ovarian cyst. We discussed importance of hydration relation to lower urinary tract symptoms as well as overall health and well-being. Will obtain MRI for surveillance monitoring Follow-up in 6 months with imaging to be completed prior; or sooner with any issues, concerns, and or questions. Orders: Orders MR abdomen wo/w con Today N28.1 - Cyst of kidney, acquired Patient Instructions: The patient had an opportunity to ask questions regarding the treatment plan. All questions were answered. Physical exam, labs, and imaging were discussed and reviewed in detail. As well as risks, benefits, and discussion of treatment choices. No major barriers to understanding were identified. The patient expressed understanding and agreement with the above treatment plan. The patient was made aware they should contact our office by phone for worsening of their current condition, the appearance of new symptoms, or with any questions or concerns. Compliance is encouraged with any medications and follow up testing that is ordered. It is a privilege to be allowed the opportunity to participate in? your urological care.? Again, if you have any questions or concerns If you have any questions or concerns please do not hesitate to contact me. The office is [phone]. This note is constructed using voice recognition software. While every effort has been made to ensure accuracy homebound teacher errors may have been included. Yours sincerely, MARIA LUISA Fung Coding Level of Care Code Tele Est Pt Level 3 (68576) Diagnoses Renal cyst N28.1 Nephrolithiasis N20.0 Microscopic hematuria R31.29 Foul smelling urine R82.90
== END 2024-08-10 13:21 | disposition home or self-care (01) ==
LOC: HO.HUSH 12:30
PROVIDERS: PCP Family Medicine; Visit Provider Nurse Practitioner Family
DX: N28.1 Cyst of kidney, acquired (principal); N20.0 Calculus of kidney; R31.29 Other microscopic hematuria; R82.90 Unspecified abnormal findings in urine
CPT/HCPCS: 99213

== ENCOUNTER → 2024-08-10 12:30 | Outpatient (BNVA) | payer OTHER, SELFPAY | PROVIDERS: PCP Family Medicine; Visit Provider Nurse Practitioner Family ==

== ENCOUNTER 2024-11-03 13:22 | Outpatient (REF) | payer OTHER, SELFPAY ==
--- NOTE | ~2024-11-03 | US_ITS ---
CLINICAL HISTORY: N83.299 - Other ovarian cyst, unspecified side Ultrasound of the female pelvis Comparison: None provided Technique: Grayscale ultrasound with assistance of color Doppler. Transabdominal scanning performed for overall anatomy. Transvaginal scanning performed for better anatomic delineation. Findings: Anteverted uterus measures 9.0 x 4.6 x 5.8 cm. Homogeneous myometrium, no uterine fibroid is seen. Unremarkable endometrium, 4 mm in thickness, IUD is present the stem terminates in the mid cervical canal, arms in the endometrium of the lower uterine segment. Unremarkable cervix. Normal right ovary, 3.5 x 2.3 x 2.2 cm. Follicles noted. No abnormal vascular flow. Enlarged left ovary, 4.8 x 3.8 x 4.1 cm. Simple cyst 4.0 x 3.4 x 3.8 cm present. No abnormal vascular flow. No free fluid. Impression: 1. 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 2. Left ovarian benign simple cyst, within physiologic size range. This document has been electronically signed by: Angelica Gomez MD on 11/03/2024 16:55:22
== END 2024-11-03 13:23 | disposition home or self-care (01) ==
LOC: HO.US 13:22
PROVIDERS: PCP Family Medicine; Visit Provider Obstetrics & Gynecology
DX: N83.299 Other ovarian cyst, unspecified side (principal)
CPT/HCPCS: 76830; 76856

== ENCOUNTER → 2024-11-03 13:24 | Outpatient (BNV) | payer OTHER, SELFPAY | PROVIDERS: PCP Family Medicine; Visit Provider Radiology Diagnostic Radiology | DX: N83.202 Unspecified ovarian cyst, left side (principal) | CPT/HCPCS: 76830; 76856 ==

== ENCOUNTER 2024-11-04 15:26 | Outpatient (REF) | payer OTHER, SELFPAY ==
[2024-11-04 20:24] LABS: CT PCR NOT DETECTED (Not Detect.); NG PCR NOT DETECTED (Not Detect.)
== END 2024-11-04 15:27 | disposition home or self-care (01) ==
LOC: HO.LNP 15:26
PROVIDERS: PCP Family Medicine; Visit Provider Obstetrics & Gynecology
DX: Z30.433 Encounter for removal and reinsertion of intrauterine contraceptive device (principal); Z32.02 Encounter for pregnancy test, result negative; N83.209 Unspecified ovarian cyst, unspecified side
CPT/HCPCS: 58300; 58301; 81025; 87491; 87591; 99212; J7300

== ENCOUNTER 2024-11-04 15:26 | Outpatient (AMB) | payer OTHER, SELFPAY ==
--- NOTE | 2024-11-04 15:26 | A.OFFVIS_ITS ---
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 Homogeneous myometrium, no uterine fibroid is seen. Unremarkable endometrium, 4 mm in thickness, IUD is present the stem terminates in the mid cervical canal, arms in the endometrium of the lower uterine segment. Unremarkable cervix. Normal right ovary, 3.5 x 2.3 x 2.2 cm. Follicles noted. No abnormal vascular flow. Enlarged left ovary, 4.8 x 3.8 x 4.1 cm. Simple cyst 4.0 x 3.4 x 3.8 cm present. No abnormal vascular flow. No free fluid. Impression: 1. Malposition of IUD, which terminates in the cervical canal, recommend salvage engineering technician consultation. 2. Left ovarian benign simple cyst, within physiologic size range. [facility] Medical History delivery delivered Surgical History Hx of section Family History Mother High blood pressure Breast cancer Lung cancer High cholesterol Diabetes Cardiovascular disease Substance abuse in family Father Melanoma Maternal Aunt Substance abuse in family Social History Household Members: Spouse, Family and Children Both parents involved: No Caregiver staying overnight: No Housing: House Are you a primary hospice care consultant to a significant other at home: No Do you presently have visiting nurse or other home services: No 75 years or older and lives alone: No Alcohol intake: current Comment: on occasion, socially Patient Tobacco Use Status: Never used Tobacco Tobacco use type: Cigarette e-Cigarette/Vaping Use: Never Used Substance Use Type: Marijuana service: No Current occupational status: unemployed Sexual orientation: Straight/Heterosexual Gender identity: Female Cognitive needs: No Hearing needs: No Vision needs: No Review of Systems Const All systems reviewed & are unremarkable except as noted in HPI and below Physical Exam Vital Signs: BMI result Body Mass Index 25.8 General: Yes no CVA tenderness External Female Exam: normal external appearance and normal appearance of the urethra Speculum Exam - Vagina: normal appearance of the vagina, normal palpation, no lesions and no masses Speculum Exam - Cervix: normal appearance of the cervix, normal palpation, no lesions, no masses, nontender and Other cervical findings present (IUD string in place) Bimanual exam- vagina & uterus: normal bimanual exam, normal palpation, uterine size normal, normal palpation, uterine shape normal, No Cervical tenderness present and non-tender Bimanual Exam- Adnexa, other: normal adnexae Back/Spine/Pelvis Back: no CVA tenderness Office Procedures IUD Insert/Removal Details Details: ParaGard IUD removal Counseling/Consent: After discussing with the patient the risks of the procedure including bleeding, infection, scar tissue formation, , possible injury to blood vessels or nerves, chronic arm pain, blood transfusion, and irregular unpredictable bleeding Alternative options were discussed with the patient including but not limited: Do nothing. The patient signed the consent and agreed with the plan; all questions answered. Urine test was done in the office and was negative Preop dx: Malpositioned ParaGard IUD Op: IUD removal Post op dx: same EBL= 10 cc Procedure: The patient was put in the dorsal lithotomy position a speculum was inserted in the vagina the IUD thread identified. Using a Radha clamp the thread was grasped and the IUD pulled out with no complications. The patient tolerated the procedure well and was advised to use a different method for contraception. ParaGard IUD insertion: The patient is presenting for Paraguard IUD insertion. Her last menstrual period was within the last 5 days, Urine test was done in the office and was negative; All the contraindications were excluded. The following possible complications were discussed with the patient: Intrauterine , Ectopic , Sepsis, Pelvic Infection, Irregular Bleeding, Perforation, Expulsion. The possible adverse effects were discussed with the patient including but not limited to: increased uterine bleeding, dysmenorrhea , others Alternative options were discussed with the patient including but not limited: control pills, patch, NuvaRing, Depo-medroxyprogesterone acetate, Nexplanon, copper IUD, sterilization, vasectomy, others The procedure was explained in detail to patient , at the end patient signed the informed consent obtained. Urine test was done in the office and was negative A no touch technique was used throughout the procedure. A speculum was placed into vagina and cervix was cleaned with betadine). A tenaculum was placed. A plastic sound was advanced through the external and internal os until it reached the fundus of the uterus, the depth was 7 cm. The sound was then withdrawn. The ParaGard IUD was loaded in a sterile manner and advanced into position. The string was visualized and cut to 3 cm. Tenaculum site hemostatic. All instruments removed from vagina. Patient tolerated the procedure well. NO complications were noted. Patient was instructed to call for fever over 100.4, significant pain unrelieved by Motrin, IUD expulsion, heavy bleeding, or abnormal discharge. In addition, the following clinical considerations were discussed with the patient to call for removal: Unexplained fever , or suspected , Pelvic pain or pain during sex ,HIV positive seroconversion in herself or her partner , Possible exposure to sexually transmitted infections Unusual vaginal discharge or genital sores , severe vaginal bleeding or bleeding that lasts a long time, or if she misses a menstrual period, Inability to feel IUD s threads Counseled the patient that the IUD does not protect against STI's, recommended use of condoms for the first 7 days post insertion and explained to the patient that condoms are recommended for patients at risk for sexually transmitted infections. Follow up appointment made for 6 weeks following insertion. This note was generated with a voice recognition program. Some errors may have been overlooked during the review of this note. Sometimes these errors may affect the content or meaning of a given sentence. 38138-RHV Insertion 06953-RVO Removal Procedure code (CPT) selection complete Office Meds ParaGard T380A (Single Hand) 380 square mm intrauterine device Performing Provider: Jose Leyva MD [place]forming Location[place] [facility] [place] [facility] Documented (not given) by: Jose Leyva MD on 11/04/24 15:59 Dose Route Admin Location Dispensed Lot Number Expiration Date [facility] Services Manager 1 device intrauterine ea Total Dispensed Waste n/a n/a Assessment & Plan Assessment & Plan (1) Remove/insert IUD: Code(s): Z30.433 - Encounter for removal and reinsertion of intrauterine contraceptive device Category: Medical Plan: Discussed with the patient the results of the ultrasound showing malpositioned IUD, recommended IUD removal and reinsertion. IUD removal/insertion done, see procedure note (2) Ovarian cyst: Code(s): N83.209 - Unspecified ovarian cyst, unspecified side Category: Medical Plan: Discussed with the patient the results of the ultrasound showing simple ovarian cyst, the patient was reassured. All questions answered, the patient verbalized understanding Orders: Orders AMB HCG Urine Test Today Z32.02 - Encounter for test, result negative AMB IUD Insertion/Removal - Practice Supplied Today Z30.433 - Encounter for removal and reinsertion of intrauterine contraceptive device Medications: New ParaGard T380A (Single Hand) (copper) 1 device intrauterine ONCE 1 ea 0RF IUD removal/insertion NS Z30.433 - Encounter for removal and reinsertion of intrauterine contraceptive device Coding Level of Care Code Est Pt Level 3 (16496) Procedure Only Diagnoses Remove/insert IUD Z30.433 Ovarian cyst N83.209 CPT Codes Details - CPT: 18330-HAF Insertion ([id number]) Details - CPT: 94545-TTM Removal ([id number])
[2024-11-04 15:28] VITALS: BMI 25.8
== END 2024-11-04 16:10 | disposition home or self-care (01) ==
LOC: HO.HWS 15:26
PROVIDERS: PCP Family Medicine; Visit Provider Obstetrics & Gynecology
DX: N83.202 Unspecified ovarian cyst, left side (principal); Z30.433 Encounter for removal and reinsertion of intrauterine contraceptive device; Z32.02 Encounter for pregnancy test, result negative
CPT/HCPCS: 58300; 58301; 99213

== ENCOUNTER 2024-12-15 09:35 | Outpatient (AMB) | payer OTHER, SELFPAY ==
--- NOTE | 2024-12-15 09:37 | A.OFFVIS_ITS ---
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 No complaints. Last Pap/HPV was negative in 10/12 [facility] Medical History delivery delivered Surgical History Hx of section Family History Mother High blood pressure Breast cancer Lung cancer High cholesterol Diabetes Cardiovascular disease Substance abuse in family Father Melanoma Maternal Aunt Substance abuse in family Social History Household Members: Spouse, Family and Children Both parents involved: No Caregiver staying overnight: No Housing: House Are you a primary physician assistant primary care to a significant other at home: No Do you presently have visiting nurse or other home services: No 75 years or older and lives alone: No Alcohol intake: current Comment: on occasion, socially Patient Tobacco Use Status: Never used Tobacco Tobacco use type: Cigarette e-Cigarette/Vaping Use: Never Used Substance Use Type: Marijuana service: No Current occupational status: unemployed Sexual orientation: Straight/Heterosexual Gender identity: Female Cognitive needs: No Hearing needs: No Vision needs: No Female Reproductive History Menstrual Duration of menses: 3-5 days Date of last menstrual period: 12/10/24 History of abnormal pap smear: No (last pap 09/24/23 negative) Review of Systems Const All systems reviewed & are unremarkable except as noted in HPI and below Card Reports as per HPI Resp Reports as per HPI GI Reports as per HPI and Reports no additional complaints Reports as per HPI Physical Exam Vital Signs: Last Vital Signs BP 106/68 12/15/24 09:40 BMI result Body Mass Index 25.8 Const General: cooperative, healthy appearing and comfortable Chest Chest palpation & inspection: normal inspection of the chest and normal palpation of entire chest wall Breast/axilla inspection: normal inspection of the breasts and normal inspection of the axillae Breast/axilla palpation: normal palpation of the breasts, normal palpation of the axillae and no axillary lymphadenopathy Resp Effort & Inspection: normal respiratory effort Auscultation: clear to auscultation bilaterally Percussion: percussion normal Cardio Palpation: normal PMI Rate: regular rate Rhythm: regular rhythm Heart sounds: no murmurs and no rubs Peripheral pulses: Peripheral pulses 2+ throughout GI Inspection: Yes normal to inspection Palpation (GI): Soft to palpation, nontender, no guarding, not rigid and No hepatosplenomegaly present Percussion: Yes normal to percussion Auscultation: normal bowel sounds Rectal Exam - Female: deferred General: Yes bladder normal to palpation External Female Exam: No lesion Speculum Exam - Vagina: normal appearance of the vagina, normal palpation, normal vaginal discharge and not erythematous Speculum Exam - Cervix: normal appearance of the cervix, normal palpation and Other cervical findings present (IUD string seen) Bimanual exam- vagina & uterus: normal bimanual exam, normal palpation, uterine size normal, bladder normal to palpation, consistency normal and normal palpation Bimanual Exam- Adnexa, other: normal adnexae, no masses and no tenderness Assessment & Plan Assessment & Plan (1) Well woman exam: Code(s): Z01.419 - Encounter for gynecological examination (general) (routine) without abnormal findings Category: Medical Plan: Cotesting not indicated this year. Counseled the patient about the recommended dietary allowance of 1000 mg of Calcium & 600 IU of vitamin D. The patient was instructed to perform monthly self-breast exams and to schedule an annual exam in a year; All questions answered and the patient verbalized understanding. Instructed the patient to schedule annual exam in a year Coding Level of Care Code Est Pt Prev Care 18-39y(79082) Diagnoses Well woman exam Z01.419
[2024-12-15 09:40] VITALS: BP 106/68; BMI 25.8
== END 2024-12-15 10:49 | disposition home or self-care (01) ==
LOC: HO.HWS 09:36
PROVIDERS: PCP Family Medicine; Visit Provider Obstetrics & Gynecology
DX: Z01.419 Encounter for gynecological examination (general) (routine) without abnormal findings (principal)
CPT/HCPCS: 99395; 99459

== ENCOUNTER → 2024-12-15 09:35 | Outpatient (BNVA) | payer OTHER, SELFPAY | PROVIDERS: PCP Family Medicine; Visit Provider Obstetrics & Gynecology | DX: Z01.419 Encounter for gynecological examination (general) (routine) without abnormal findings (principal); Z98.891 History of uterine scar from previous surgery | CPT/HCPCS: 99395 ==

== ENCOUNTER 2024-12-24 15:55 | Outpatient (AMB) | payer OTHER, SELFPAY ==
--- NOTE | 2024-12-24 15:58 | MHC.PC.OV ---
Vital Signs 12/24/24 16:01 Height 5 ft 5 in Weight 150 lb 2 oz BMI 25.0 BP 116/78 Blood Pressure Location Rt brachial Position Sitting Respiration 14 Pulse 85 Pulse Source Pulse Oximeter Temp 98.1 F Temp Source Temporal Artery Scan Pulse Oximetry (%) 99 Oxygen Delivery Method Room Air Intake Visit Reasons: CPE with f/u labs and health maint Intake Note: Dorothy presents in the office today for her CPE and review of her labs. Allergies No Known Allergies Allergy (Verified 12/24/24 16:00) Medication List - Last Reconciled 12/24/24 by Raj James MD citalopram 20 mg PO DAILY 90 days dextroamphetamine-amphetamine 10 mg (Adderall) 20 mg PO DAILY spironolactone 100 mg PO DAILY Tobacco use date assessed: 12/24/24 Dental Screening Dental Screen Date: 12/24/24 Did you have a dental visit in the last 12 months?: Yes Did you have a dental problem in the last 6 months where you did not have access to dental care?: No Was dental information given to patient?: Patient has dentist HPI CPE with f/u labs and health maint HPI Details 34 y/o female presents for a CPE with f/u labs and health maint. No recent CPE-labs to review. Has complaints of a fungal infection of toes. Ongoing complaints of sun damaged skin. She continues surveillance with dermatology. [facility] Medical History delivery delivered Surgical History Hx of section Family History Mother High blood pressure Breast cancer Lung cancer High cholesterol Diabetes Cardiovascular disease Substance abuse in family Father Melanoma Maternal Aunt Substance abuse in family Social History (Updated 12/24/24 @ 16:01 by Toya Roth MA) Household Members: Spouse, Family and Children Both parents involved: No Caregiver staying overnight: No Housing: House Are you a primary care team coordinator scheduler to a significant other at home: No Do you presently have visiting nurse or other home services: No 75 years or older and lives alone: No Alcohol intake: current Comment: on occasion, socially Patient Tobacco Use Status: Never used Tobacco Tobacco use type: Cigarette e-Cigarette/Vaping Use: Never Used Second Hand Smoke Exposure: No Substance Use Type: Marijuana service: No Current occupational status: unemployed Sexual orientation: Straight/Heterosexual Gender identity: Female Cognitive needs: No Hearing needs: No Vision needs: No Questionnaire PHQ-9 Over the last 2 weeks, how often have you been bothered by any of the following problems? 1. Little interest or pleasure in doing things: not at all 2. Feeling down, depressed, or hopeless: not at all 3. Trouble falling or staying asleep, or sleeping too much: several days 4. Feeling tired or having little energy: several days 5. Poor appetite or overeating: several days 6. Feeling bad about yourself - or that you are a failure or have let yourself or your family down: not at all 7. Trouble concentrating on things, such as reading the newspaper or watching television: several days 8. Moving or speaking so slowly that other people could have noticed. Or the opposite - being so fidgety or restless that you have been moving around a lot more than usual: several days 9. Thoughts that you would be better off or of hurting yourself in some way: not at all Total score: 5 Depression Screening Interpretation: Positive Depression Screening Done: Yes 14768 - PHQ-9 Billing: Yes Source: Developed by Drs. Rusty Morales, Denise Valladares, Jose Hoover and colleagues, with an educational randy from [employer]. Thrive Questionnaire Date Thrive assessed: 12/24/24 I am a: Patient What is your living situation today?: I have a steady place to live Within the past 12 months, did the food you bought not last and you didn't have the money to get more?: Never true Within the past 12 months, did you worry whether your food would run out before you got money to buy more?: Never true Do you have trouble paying for medicines?: No Do you have trouble getting transportation to medical appointments?: No Do you have trouble paying your heating and electricity bill?: No Do you have trouble taking care of your child, family member or friend?: No Do you have trouble with day-to-day activities such as bathing, preparing meals, shopping, managing finances, etc.?: No Are you currently unemployed and looking for a job?: No Are you interested in more education?: No Please select the resources that you would like help with: None Currently or been in a relationship where the following occur: No concerns reported THRIVE Score: 0 AUDIT C Alcohol Use Questionnaire (AUDIT-C) 1. How often do you have a drink containing alcohol?: 2-4 times a month 2. How many drinks containing alcohol do you have on a typical day when you are drinking?: 1 or 2 3. How often do you have six or more drinks on one occasion?: Never Total Score: 2 FAZAL-7 AMB Questionnaire FAZAL-7 Date FAZAL - 7 assessed: 12/24/24 Feeling nervous, anxious, or on edge: 1 = Several days Not being able to stop or control worryin = Several days Worrying too much about different things: 1 = Several days Trouble relaxin = Several days Being so restless that it is hard to sit still: 1 = Several days Becoming easily annoyed or irritable: 1 = Several days Feeling afraid as if something awful might happen: 0 = Not at all Total FAZAL-7 score (0-4 normal; 5-9 mild; 10-14 moderate; 15-21 severe): 6 Source: Developed by Drs. Rusty Morales, Denise Valladares, Jose Hoover and colleagues, with an educational randy from [employer]. FAZAL-7 Assessment Billing FAZAL-7 Assessment Tool: FAZAL-7 Assessment 23643 Review of Systems Const Denies chills, Denies fatigue, Denies fever(s), Denies headache(s) and Denies weakness Eyes Denies change in vision ENT Denies dizziness, Denies headache(s), Denies hearing loss, Denies nasal congestion, Denies sinus pain, Denies sinus pressure and Denies sore throat Card Denies chest pain, Denies lightheadedness, Denies dyspnea and Denies other (palpitations) Resp Denies cough, Denies dyspnea and Denies wheezing GI Denies abdominal pain, Denies melena, Denies hematochezia, Denies change in bowel habits, Denies dyspepsia and Denies nausea Denies hematuria and Denies dysuria Musc Denies abnormal gait, Denies myalgias, Denies arthralgias, Denies numbness and Denies tingling Skin/Breast Denies rash, Denies unusual bruising and Denies wounds Neuro Denies abnormal gait, Denies dizziness, Denies headache(s), Denies memory loss, Denies numbness, Denies Sensory deficit (Neuro), Denies tingling and Denies weakness Psych Denies anxiety, Denies depression and Denies memory loss Endo Denies cold intolerance, Denies fatigue, Denies heat intolerance, Denies polydipsia and Denies polyuria Familia/Lymph Denies easy bleeding and Denies easy bruising Aller/Immun Denies wheezing Physical exam (Primary Care) Vital Signs: Last Vital Signs Temp 98.1 F 12/24/24 16:01 Pulse 85 12/24/24 16:01 Resp 14 12/24/24 16:01 BP 116/78 12/24/24 16:01 Pulse Ox 99 12/24/24 16:01 Oxygen Delivery Method Room Air 12/24/24 16:01 BMI result Body Mass Index 25.0 Tobacco/Smoking Status: Tobacco use Status Tobacco use date assessed 12/24/24 12/24/24 16:04 Patient Tobacco Use Status Never used Tobacco 12/24/24 16:04 Tobacco use type Cigarette 12/24/24 16:04 e-Cigarette/Vaping Use Never Used 12/24/24 16:04 PHQ-9: PHQ-9 Score PHQ-9: Total score 5 12/24/24 16:04 Depression Screening Interpretation: Positive Thrive Assessment: Date of Thrive Assessment Date Thrive assessed 12/24/24 12/24/24 16:04 Currently or been in a relationship where the following occur: No concerns reported Const General: no acute distress, well developed, alert and awake Nutritional Appearance: well nourished Orientation/consciousness: patient oriented x3 HENMT Head: Yes normocephalic and Yes atraumatic Ears: hearing grossly normal bilaterally and TM's normal bilaterally General nose exam: Normal external nose present and Normal nares present Mouth: Normal oral and palatal mucosa present and moist mucous membranes Teeth and gingiva: dentition normal Throat: Yes posterior oropharynx normal Eyes General: appearance normal, both eyes and all related structures Pupils: Equal, round and reactive pupils present and Pupil accommodation reflex normal EOM: EOMs intact bilaterally Neck Neck: Yes normal visual inspection, Yes no lymphadenopathy and Yes trachea midline Thyroid: Thyroid normal Carotids: no bruits Lymphatic: no lymphadenopathy noted Chest Chest palpation & inspection: normal inspection of the chest Resp Effort & Inspection: normal respiratory effort Auscultation: clear to auscultation bilaterally Cardio Rate: regular rate Rhythm: regular rhythm Heart sounds: S1 normal heart sound present, S2 normal heart sound present, no gallops, no murmurs and no rubs Bruits: no abdominal aortic bruits and no carotid bruits GI Palpation (GI): No Abdominal aortic bruit present, Soft to palpation, nontender, No hepatosplenomegaly present and No Rebound tenderness present Auscultation: normal bowel sounds General: Yes no CVA tenderness Back/Spine/Pelvis Back: no CVA tenderness Cervical Spine: cervical ROM normal and No Cervical spine tenderness Thoracic/Lumbar Spine: thoraco-lumbar ROM normal, No pain with thoraco-lumbar ROM, No thoracic spinal tenderness and No lumbar spinal tenderness Skin Lesions: no lesions Rashes: no rashes Trauma: no lacerations or abrasions Wounds: no wounds Nails: normal Neuro General: patient oriented x3 Cranial nerves: Yes Equal, round and reactive pupils present Cognition (Neuro): normal cognition Gait exam (Neuro): Normal gait present Motor exam (neuro): 5/5 motor strength present throughout Sensory Exam: No Sensory deficit (Neuro) Deep tendon reflexes (DTR's): Right patellar reflex intensity grade: 2+ and Left patellar reflex intensity grade: 2+ Extrem General: Yes normal to inspection and No edema Psych Appearance: grossly normal Affect: normal affect Attitude: cooperative Thought process: Normal thought process present Coding Level of Care Code Est Pt Level 3 (62687) Est Pt Prev Care 18-39y(87252) Diagnoses Adult general medical exam Z00.00 Sun-damaged skin L57.8 Fungal toenail infection B35.1 Additional Codes FAZAL-7 Assessment Billing - FAZLA-7 Assessment Tool: FAZAL-7 Assessment 02325 ([id number]) PHQ-9 - 08349 - PHQ-9 Billing: Yes ([id number]) Assessment & Plan Assessment & Plan (1) Adult general medical exam: Code(s): Z00.00 - Encounter for general adult medical examination without abnormal findings Category: Medical Plan: 34-year-old female presents for complete physical exam Encouraged healthy diet with active lifestyle exercise (2) Sun-damaged skin: Code(s): L57.8 - Other skin changes due to chronic exposure to nonionizing radiation Category: Medical Plan: Patient is followed by Dermatology She notes that she recently had actinic keratosis on the bridge of her nose which removed with cryotherapy. They are following sun damaged skin on her back and shoulders but she has not required any biopsies Continue surveillance with Dermatology (3) Fungal toenail infection: Code(s): B35.1 - Tinea unguium Category: Medical Plan: Patient will avoid excess moisture at feet and change socks twice a day as well as beat twice a day. Pat skin dry but avoid drying out skin. She will use a topical and we are checking liver enzymes. If liver enzymes are within normal range we can consider oral medication and patient would like to pursue this if possible. Orders: Orders Comprehensive [place]. Panel Fast Today Z00.00 - Encounter for general adult medical examination without abnormal findings Lipid Panel Today Z00.00 - Encounter for general adult medical examination without abnormal findings TSH reflex Free T4 Today Z00.00 - Encounter for general adult medical examination without abnormal findings UA CC w/rflx Micro + Cult Today Z00.00 - Encounter for general adult medical examination without abnormal findings Complete Blood Count Auto Diff Today Z00.00 - Encounter for general adult medical examination without abnormal findings Microalbumin, Random (w Creat) Today I10 - Essential (primary) hypertension
[2024-12-24 16:01] VITALS: BP 116/78; PULSE 85; RESP 14; TEMP 36.7; O2SAT 99; BMI 25.0
== END 2024-12-24 16:25 | disposition home or self-care (01) ==
LOC: HO.HMCFM 15:56
PROVIDERS: PCP Family Medicine; Visit Provider Family Medicine
DX: Z00.00 Encounter for general adult medical examination without abnormal findings (principal); B35.1 Tinea unguium; L57.8 Other skin changes due to chronic exposure to nonionizing radiation

== ENCOUNTER → 2024-12-24 15:55 | Outpatient (BNVA) | payer OTHER, SELFPAY | PROVIDERS: PCP Family Medicine; Visit Provider Family Medicine | DX: Z00.00 Encounter for general adult medical examination without abnormal findings (principal); L57.8 Other skin changes due to chronic exposure to nonionizing radiation; B35.1 Tinea unguium; I10 Essential (primary) hypertension | CPT/HCPCS: 96127; 99212; 99395 ==

== ENCOUNTER 2025-01-25 09:18 | Outpatient (REF) | payer OTHER, SELFPAY ==
[2025-01-25 11:22] LABS: Appearance Urine Clear; Glucose Urine UA Negative (Negative); PH 7.0 (5.0-9.0); Specific Gravity - Urine 1.020 (1.005-1.025); UMIC TRIGGER UACC YES
[2025-01-25 11:27] LABS: MANUAL DIFF FLAG NO
[2025-01-25 11:34] LABS: Hematocrit 38.1 % (37.0-47.0); Hemoglobin 12.6 g/dl (12.0-16.0); Imm Gran Abs Auto 0.02 X10*3/uL (0.00-0.03); Imm Gran Pct Auto 0.4 % (0.0-0.4); Lymphocytes Absolute Auto 1.9 X10*3/uL (1.2-4.9); Mean Corpuscular HGB Conc 33.1 g/dl (31.0-35.0); Mean Corpuscular Hemoglobin 28.0 pg (27.0-33.0); Mean Corpuscular Volume 84.7 fL (80.0-98.0); NRBC Abs Auto 0.000 X10*3/uL (0.0-0.012); NRBC Pct Auto 0.0 /100WBC (0.0-0.2); Platelet Count 197 X10*3/uL (160-400); Red Blood Count 4.50 X10*6/uL (4.20-5.50); White Blood Count 5.1 X10*3/uL (4.8-10.8)
[2025-01-25 12:01] LABS: Alanine Aminotransferase 11 U/L (0-31); Albumin Level 4.7 g/dL (3.5-5.0); Alkaline Phosphatase 40 U/L (39-117); Anion Gap 10 (12-20); Aspartate Amino Transferase 19 U/L (5-31); Blood Urea Nitrogen 10 mg/dL (9-16); Calcium 9.1 mg/dL (8.4-10.2); Carbon Dioxide 28 mmol/L (22-29); Chloride 105 mmol/L (96-108); Cholesterol 167 mg/dL (<200); Estimated Glomerular Filt Rate > 60; HDL Cholesterol 60 mg/dL (>40); Potassium 4.0 mmol/L (3.3-5.1); Sodium 139 mmol/L (135-145); Total Protein 7.1 g/dL (6.5-8.0); Triglycerides 88 mg/dL (<150)
[2025-01-25 12:14] LABS: Microalbum/Creatinine Ratio Ur 4.1 ug/mg cr (<30)
== END 2025-01-25 09:19 | disposition home or self-care (01) ==
LOC: HO.WFDLDS 09:18
PROVIDERS: Visit Provider Family Medicine
DX: Z00.00 Encounter for general adult medical examination without abnormal findings (principal); I10 Essential (primary) hypertension; N20.0 Calculus of kidney
CPT/HCPCS: 36415; 80053; 80061; 81001; 82043; 82570; 84443; 85025

== ENCOUNTER 2025-01-27 16:07 | Outpatient (AMB) | payer OTHER, SELFPAY ==
--- NOTE | 2025-01-27 16:05 | MHC.PC.OV ---
Intake Visit Reasons: F/U CPE and Labs Intake Note: Telehealth to review labs. Community Service Representative Required: No Allergies No Known Allergies Allergy (Verified 01/27/25 16:06) Medication List - Last Reconciled 01/27/25 by Raj James MD citalopram 20 mg PO DAILY 90 days dextroamphetamine-amphetamine 10 mg (Adderall) 20 mg PO DAILY spironolactone 100 mg PO DAILY Tobacco use date assessed: 01/27/25 Dental Screening Dental Screen Date: 01/27/25 Did you have a dental visit in the last 12 months?: Yes Did you have a dental problem in the last 6 months where you did not have access to dental care?: No Was dental information given to patient?: Patient has dentist HPI F/U CPE and Labs HPI Details 34 y/o female presents to f/u labs via telemed. Labs drawn 01/25/25. Reviewed labs with pt. Triglycerides 88. TC 167. LDL 90. HDL 60. Liver enzymes are fine - AST 19, ALT 11. PFSH Medical History delivery delivered Surgical History Hx of section Family History Mother High blood pressure Breast cancer Lung cancer High cholesterol Diabetes Cardiovascular disease Substance abuse in family Father Melanoma Maternal Aunt Substance abuse in family Social History (Updated 12/24/24 @ 16:01 by Toya Roth MA) Household Members: Spouse, Family and Children Both parents involved: No Caregiver staying overnight: No Housing: House Are you a primary home health care provider to a significant other at home: No Do you presently have visiting nurse or other home services: No 75 years or older and lives alone: No Alcohol intake: current Comment: on occasion, socially Patient Tobacco Use Status: Never used Tobacco Tobacco use type: Cigarette e-Cigarette/Vaping Use: Never Used Second Hand Smoke Exposure: No Substance Use Type: Marijuana service: No Current occupational status: unemployed Sexual orientation: Straight/Heterosexual Gender identity: Female Cognitive needs: No Hearing needs: No Vision needs: No Questionnaire Thrive Questionnaire Date Thrive assessed: 12/22/24 I am a: Patient What is your living situation today?: I have a steady place to live Within the past 12 months, did the food you bought not last and you didn't have the money to get more?: Never true Within the past 12 months, did you worry whether your food would run out before you got money to buy more?: Never true Do you have trouble paying for medicines?: No Do you have trouble getting transportation to medical appointments?: No Do you have trouble paying your heating and electricity bill?: No Do you have trouble taking care of your child, family member or friend?: No Do you have trouble with day-to-day activities such as bathing, preparing meals, shopping, managing finances, etc.?: No Are you currently unemployed and looking for a job?: No Are you interested in more education?: No Please select the resources that you would like help with: None Currently or been in a relationship where the following occur: No concerns reported THRIVE Score: 0 FAZAL-7 AMB Questionnaire FAZAL-7 Date FAZAL - 7 assessed: 12/24/24 Source: Developed by Drs. Rusty Morales, Denise Valladares, Jose Hoover and colleagues, with an educational randy from [employer]. Review of Systems Const Denies chills, Denies fatigue, Denies fever(s), Denies headache(s) and Denies weakness ENT Denies dizziness and Denies headache(s) Card Denies dyspnea Resp Denies cough, Denies dyspnea, Denies wheezing and Denies other (shortness of breath) Musc Denies numbness and Denies tingling Neuro Denies dizziness, Denies headache(s), Denies numbness, Denies tingling and Denies weakness Psych Denies anxiety and Denies depression Endo Denies fatigue Aller/Immun Denies wheezing Physical exam (Primary Care) Tobacco/Smoking Status: Tobacco use Status Tobacco use date assessed 01/27/25 01/27/25 16:07 Patient Tobacco Use Status Never used Tobacco 01/27/25 16:07 Tobacco use type Cigarette 01/27/25 16:07 e-Cigarette/Vaping Use Never Used 01/27/25 16:07 Thrive Assessment: Date of Thrive Assessment Date Thrive assessed 12/22/24 01/27/25 16:07 Currently or been in a relationship where the following occur: No concerns reported Telehealth Telehealth Telehealth Platform: Telephone Location of provider rendering services: practice address Location of patient: address on file Patient Identification confirmed using: Name, : Yes Telehealth method: voice only Patient verbally consented to treatment: Yes Patient verbally consented to billing insurance company: Yes Patient informed of any privacy concerns related to visit: Yes Minutes spent on Phone/Video with Pt.: 5 Coding Level of Care Code Tele Est Pt Level 2 (75841) Diagnoses Fungal toenail infection B35.1 Assessment & Plan Assessment & Plan (1) Fungal toenail infection: Code(s): B35.1 - Tinea unguium Category: Medical Plan: Liver enzymes within normal range She would like to move forward with oral Lamisil treatment Will send script She will get her labs redrawn in a couple weeks and we can follow-up on this Orders: Orders Comprehensive Met. Panel Today B35.1 - Tinea unguium Medications: New terbinafine HCl 250 mg PO DAILY 30 tabs 1RF 30 days
== END 2025-01-27 17:05 ==
LOC: HO.HMCFM 16:07
PROVIDERS: PCP Family Medicine; Visit Provider Family Medicine
DX: B35.1 Tinea unguium (principal)

== ENCOUNTER 2025-02-12 13:39 | Outpatient (REF) | payer OTHER, SELFPAY ==
--- NOTE | ~2025-02-12 | MR_ITS ---
EXAMINATION: MR ABDOMEN WITHOUT THEN WITH IV CONTRAST HISTORY: N28.1 - Cyst of kidney, acquired COMPARISON: Correlation is made with an abdominal CT scan dated 05/07/2024 and a retroperitoneal ultrasound dated 07/30/2024. TECHNIQUE: Axial in and out of phase T1-weighted gradient echo, axial diffusion weighted, and axial and coronal HASTE T2 with fat saturation images were obtained through the abdomen. Subsequently, fat suppressed axial and coronal T1-weighted images were obtained after the intravenous administration of 6.5 mL Gadavist. FINDINGS: Liver: There is no loss of signal intensity in the liver on opposed phase imaging to suggest steatosis. There is no enhancing liver mass. The hepatic and portal veins are patent. There is no intrahepatic biliary dilatation. Gallbladder/biliary tree: No gallstones are identified. The common bile duct is normal in caliber. No intraluminal filling defects are identified to suggest choledocholithiasis. Spleen: The spleen is unremarkable. Pancreas: The pancreas is unremarkable. There is no enhancing pancreatic mass. The pancreatic duct is normal in caliber. Adrenals: The adrenal glands are unremarkable. Kidneys: Again seen is a multiseptated cystic lesion at the upper pole of the right kidney measuring approximately 5.5 x 3.2 x 3.7 cm. Innumerable thin enhancing septations are noted. There is no solid component. Additional smaller cysts are noted in both kidneys measuring up to 7 mm on the right and 11 mm on the left. There is no enhancing solid renal mass. There is no hydronephrosis. Lymph nodes: There is no retroperitoneal lymphadenopathy in the upper abdomen. Fluid: There is no ascites in the upper abdomen. Visualized bowel: The visualized small and large bowel loops are unremarkable in appearance. Visualized bones: The visualized bones demonstrate normal marrow signal intensity. MR/MR abdomen wo/w con IMPRESSION: 5.5 x 3.2 x 3.7 cm multiseptated cystic lesion at the upper pole of the right kidney with innumerable dated enhancing septations, but without a solid component. This represents a Bosniak IIF lesion. Follow-up imaging is recommended every 6 months for one year, and then every year for an additional 4 years (5 year total follow-up). [employer] 2020; [id number] Electronically signed by: Rusty Harrison MD 02/14/2025 07:20 AM EDT RP
== END 2025-02-12 13:40 | disposition home or self-care (01) ==
LOC: HO.MRI 13:39
PROVIDERS: PCP Family Medicine; Visit Provider Nurse Practitioner Family
DX: N28.1 Cyst of kidney, acquired (principal)
CPT/HCPCS: 74183; A9585

== ENCOUNTER → 2025-02-12 13:39 | Outpatient (BNV) | payer OTHER, SELFPAY | PROVIDERS: PCP Family Medicine; Visit Provider Radiology Diagnostic Radiology | DX: N28.1 Cyst of kidney, acquired (principal) | CPT/HCPCS: 74183 ==

== ENCOUNTER 2025-02-15 09:23 | Outpatient (REF) | payer OTHER, SELFPAY ==
[2025-02-15 11:12] LABS: Appearance Urine Clear; Glucose Urine UA Negative (Negative); PH 7.0 (5.0-9.0); Specific Gravity - Urine 1.025 (1.005-1.025); UMIC TRIGGER UACC YES
[2025-02-15 11:55] LABS: Alanine Aminotransferase 13 U/L (0-31); Albumin Level 4.6 g/dL (3.5-5.0); Alkaline Phosphatase 42 U/L (39-117); Anion Gap 9 (12-20); Aspartate Amino Transferase 18 U/L (5-31); Blood Urea Nitrogen 11 mg/dL (9-16); Calcium 9.2 mg/dL (8.4-10.2); Carbon Dioxide 29 mmol/L (22-29); Chloride 106 mmol/L (96-108); Estimated Glomerular Filt Rate > 60; Potassium 4.3 mmol/L (3.3-5.1); Sodium 140 mmol/L (135-145); Total Protein 7.1 g/dL (6.5-8.0)
== END 2025-02-15 09:24 | disposition home or self-care (01) ==
LOC: HO.WFDLDS 09:23
PROVIDERS: Visit Provider Family Medicine
DX: B35.1 Tinea unguium (principal)
CPT/HCPCS: 36415; 80053; 81001

== ENCOUNTER 2025-02-25 09:52 | Outpatient (REF) | payer OTHER, SELFPAY ==
[2025-02-25 12:21] LABS: Alanine Aminotransferase 14 U/L (0-31); Albumin Level 4.9 g/dL (3.5-5.0); Alkaline Phosphatase 45 U/L (39-117); Anion Gap 13 (12-20); Aspartate Amino Transferase 18 U/L (5-31); Blood Urea Nitrogen 11 mg/dL (9-16); Calcium 9.6 mg/dL (8.4-10.2); Carbon Dioxide 25 mmol/L (22-29); Chloride 106 mmol/L (96-108); Estimated Glomerular Filt Rate > 60; Potassium 4.0 mmol/L (3.3-5.1); Sodium 140 mmol/L (135-145); Total Protein 7.7 g/dL (6.5-8.0)
== END 2025-02-25 09:53 | disposition home or self-care (01) ==
LOC: HO.WFDLDS 09:52
PROVIDERS: Visit Provider Family Medicine
DX: B35.1 Tinea unguium (principal)
CPT/HCPCS: 36415; 80053

== ENCOUNTER 2025-04-18 11:53 | Outpatient (AMB) | payer OTHER, SELFPAY ==
--- NOTE | 2025-04-18 11:53 | A.OFFVIS_ITS ---
Intake Visit Reasons: 6M/MRI(SET) Intake Note: Patient presents today for tele visit follow up on:MRI results Imaging Completed: Abd MRI 02/12/25 Urology Medications: none Blood Thinner: none Shot Blaster Required: No Accompanied by: Self / Same As Patient Allergies No Known Allergies Allergy (Verified 04/18/25 15:43) Medication List - Last Reconciled 04/18/25 by BENJAMIN Fung- citalopram 20 mg PO DAILY 90 days dextroamphetamine-amphetamine 10 mg (Adderall) 25 mg PO DAILY spironolactone 100 mg PO DAILY terbinafine HCl 250 mg PO DAILY 30 days HPI Comments Details: Dorothy is a 34-year-old female patient of Dr. James. She is being followed up on today via video telehealth for her history of microscopic hematuria and renal cysts. In discussion with the patient today she reports urologically she has had no bothersome urinary issues or concerns. She reports foul-smelling urine she had been experiencing has since subsided. Most recent MRI renal mass protocol results were reviewed with the patient today 02/12 again seen as a multi septated cystic lesion in the upper pole of the right kidney measuring 5.5 x 3.2 x 3.7 cm innumerable thin enhancing septations are noted. There is no solid component. Additional smaller cysts are noted in both kidneys measuring up to 7 mm on the right and 11 mm on the left. There is no enhancing solid renal masses. There is no hydronephrosis. Francok 2 F lesion Per radiology report recommendations for follow-up imaging every 6 months for 1 year and then every year for an additional 4-5 years. She reports having followed up with gynecology due to malposition of IUD as well as complex ovarian cysts. She does report noting abnormal menses over the last few months and plans to follow- up with gynecology regarding this issue. She denies urinary urgency, urinary frequency, incontinence, nocturia, hematuria, dysuria, changes to urinary stream, flank pain, fever, and or chills. All questions were answered. We did discuss classifications of renal cysts as well as further interventions and risks and benefits of these interventions. She otherwise offers no other issues or concerns at this time. FORMERLY [facility], [facility] Medical History delivery delivered Surgical History Hx of section Family History Mother High blood pressure Breast cancer Lung cancer High cholesterol Diabetes Cardiovascular disease Substance abuse in family Father Melanoma Maternal Aunt Substance abuse in family Social History (Updated 12/24/24 @ 16:01 by Toya Roth MA) Household Members: Spouse, Family and Children Both parents involved: No Caregiver staying overnight: No Housing: House Are you a primary ocular care aide to a significant other at home: No Do you presently have visiting nurse or other home services: No 75 years or older and lives alone: No Alcohol intake: current Comment: on occasion, socially Patient Tobacco Use Status: Never used Tobacco Tobacco use type: Cigarette e-Cigarette/Vaping Use: Never Used Second Hand Smoke Exposure: No Substance Use Type: Marijuana service: No Current occupational status: unemployed Sexual orientation: Straight/Heterosexual Gender identity: Female Cognitive needs: No Hearing needs: No Vision needs: No Review of Systems Const All systems reviewed & are unremarkable except as noted in HPI and below Physical Exam Const General: cooperative, healthy appearing, comfortable, no acute distress, well developed, alert and awake Orientation/consciousness: patient oriented x3 Resp Effort & Inspection: normal respiratory effort and able to speak in complete sentences Neuro General: patient oriented x3 Psych Mental Status: mental status grossly normal Speech and movement: Clear speech present Affect: normal affect Attitude: cooperative Thought process: Normal thought process present Thought content: Normal thought content present Insight: Fair insight present (Psych) Judgement: Fair judgement present (Psych) Telehealth Telehealth [facility] Location of provider rendering services: practice address Location of patient: address on file Patient Identification confirmed using: Name, : Yes Telehealth method: video Patient verbally consented to treatment: Yes Patient verbally consented to billing insurance company: Yes Patient informed of any privacy concerns related to visit: Yes Minutes spent on Phone/Video with Pt.: 15 Results Reviewed Results Reviewed: Date of Service: 02/12/25 Procedure(s): MR abdomen wo/w con FINDINGS: Liver: There is no loss of signal intensity in the liver on opposed phase imaging to suggest steatosis. There is no enhancing liver mass. The hepatic and portal veins are patent. There is no intrahepatic biliary dilatation. Gallbladder/biliary tree: No gallstones are identified. The common bile duct is normal in caliber. No intraluminal filling defects are identified to suggest choledocholithiasis. Spleen: The spleen is unremarkable. Pancreas: The pancreas is unremarkable. There is no enhancing pancreatic mass. The pancreatic duct is normal in caliber. Adrenals: The adrenal glands are unremarkable. Kidneys: Again seen is a multiseptated cystic lesion at the upper pole of the right kidney measuring approximately 5.5 x 3.2 x 3.7 cm. Innumerable thin enhancing septations are noted. There is no solid component. Additional smaller cysts are noted in both kidneys measuring up to 7 mm on the right and 11 mm on the left. There is no enhancing solid renal mass. There is no hydronephrosis. Lymph nodes: There is no retroperitoneal lymphadenopathy in the upper abdomen. Fluid: There is no ascites in the upper abdomen. Visualized bowel: The visualized small and large bowel loops are unremarkable in appearance. Visualized bones: The visualized bones demonstrate normal marrow signal intensity. IMPRESSION: 5.5 x 3.2 x 3.7 cm multiseptated cystic lesion at the upper pole of the right kidney with innumerable dated enhancing septations, but without a solid component. This represents a Bosniak IIF lesion. Follow-up imaging is recommended every 6 months for one year, and then every year for an additional 4 years (5 year total follow-up). Assessment & Plan Assessment & Plan (1) Renal cyst: Code(s): N28.1 - Cyst of kidney, acquired Category: Medical (2) Foul smelling urine: Code(s): R82.90 - Unspecified abnormal findings in urine Category: Medical (3) Microscopic hematuria: Comment: Foul smelling urine Code(s): R31.29 - Other microscopic hematuria Category: Medical Plan Most recent MRI renal mass protocol results reviewed with the patient today; as noted above. We did discussed classifications of renal cysts as well as further interventions and risks and benefits of these interventions. She currently denies any bothersome urinary issues or concerns. She reports be happy with current voiding parameters. Will continue with surveillance monitoring. Will obtain renal ultrasound in 6 months. Follow-up in 6 months with imaging; or sooner with any issues, concerns, and or questions. Orders: Orders Urine Cytology Today R31.29 - Other microscopic hematuria US renal BI 6 Months N20.0 - Calculus of kidney, N28.1 - Cyst of kidney, acquired Patient Instructions: The patient had an opportunity to ask questions regarding the treatment plan. All questions were answered. Physical exam, labs, and imaging were discussed and reviewed in detail. As well as risks, benefits, and discussion of treatment choices. No major barriers to understanding were identified. The patient expressed understanding and agreement with the above treatment plan. The patient was made aware they should contact our office by phone for worsening of their current condition, the appearance of new symptoms, or with any questions or concerns. Compliance is encouraged with any medications and follow up testing that is ordered. It is a privilege to be allowed the opportunity to participate in? your urological care.? Again, if you have any questions or concerns If you have any questions or concerns please do not hesitate to contact me. The office is [phone]. This note is constructed using voice recognition software. While every effort has been made to ensure accuracy professional services consultant errors may have been included. Yours sincerely, MARIA LUISA Fung Coding Level of Care Code Tele Est Pt Level 3 (20712) Diagnoses Renal cyst N28.1 Foul smelling urine R82.90 Microscopic hematuria R31.29
== END 2025-04-18 13:24 | disposition home or self-care (01) ==
LOC: HO.HUSH 11:53
PROVIDERS: PCP Family Medicine; Visit Provider Nurse Practitioner Family
DX: N28.1 Cyst of kidney, acquired (principal); R82.90 Unspecified abnormal findings in urine; R31.29 Other microscopic hematuria
CPT/HCPCS: 99213